=== PATIENT | female | born 1960 | race Caucasian/White ===

== ENCOUNTER 2016-09-14 13:39 | Emergency (ER) | payer MEDICARE, MEDICAID ==
[2016-09-14 14:18] LABS: BASO # 0.1 K/mm3 (0.0-0.2); BASO % 1.2 % (0.0-1.0); EOS # 0.1 K/mm3 (0.0-0.50); EOS % 1.1 % (0.0-3.0); LARGE UNSTAINED CELL # 0.2 K/mm3 (0.0-0.4); LYMPH # 3.5 K/mm3 (1.5-4.5); LYMPH % 39.8 % (24.0-44.0); MEAN CORPUSCULAR HEMOGLOBIN 29.5 pg (27.0-33.0); MEAN CORPUSCULAR HGB CONC 33.3 g/dl (32.0-36.5); MEAN CORPUSCULAR VOLUME 88.4 fl (80.0-96.0); MONO # 0.3 K/mm3 (0.0-0.8); MONO % 3.8 % (0.0-5.0); NEUTROPHILS # 4.6 K/mm3 (1.8-7.7); NEUTROPHILS % 52.1 % (36.0-66.0); PLATELET COUNT, AUTOMATED 228 k/mm3 (150-450); RED CELL DISTRIBUTION WIDTH 12.1 % (11.5-14.5); WHITE BLOOD COUNT 8.9 K/mm3 (4.0-10.0)
[2016-09-14 14:35] LABS: ANION GAP 9 MEQ/L (8-16); BLOOD UREA NITROGEN 8 MG/DL (7-18); CALCIUM LEVEL 8.7 MG/DL (8.5-10.1); CARBON DIOXIDE LEVEL 24 MEQ/L (21-32); CHLORIDE LEVEL 107 MEQ/L (98-107); CREATININE FOR GFR 0.77 MG/DL (0.55-1.02); FREE T4 1.22 NG/DL (0.76-1.46); GLOMERULAR FILTRATION RATE > 60.0 (>51); GLUCOSE, FASTING 96 MG/DL (70-105); POTASSIUM SERUM 3.6 MEQ/L (3.5-5.1); SODIUM LEVEL 140 MEQ/L (136-145)
--- NOTE | 2016-09-14 15:08 | REP ---
Chest, two views: Comparison: 11/08/2012 There is no evidence of acute infiltrate. No pleural effusion is seen. The heart is normal in size. The mediastinal silhouette is unremarkable. The visualized osseous structures are intact. IMPRESSION: No acute pulmonary disease. Signed by Pk Uribe MD 09/14/2016 07:40 P
--- NOTE | 2016-09-14 16:21 | EDDOCDS ---
Physician Documentation [facility] Name: Karen Christie Age: 56 yrs Sex: Female : 1960 Arrival Date: 09/14/2016 Time: 13:39 Bed 17 Private MD: Shahbaz Chris Disposition: 09/14 14:58 Critical Care: Critical care not applicable. pc Disposition: 09/14/16 15:41 Discharged to Home/Self Care. Impression: Palpitations, Cardiac murmur, unspecified - systolic, aortic valve, grade 2/6. - Condition is Stable. - Discharge Instructions: Heart Murmur, Palpitations. - Prescriptions for 24 Hr Holter Monitor . - as directed 1 unit by . route as directed Dx: palpitations CC: Dr. Monte; 1 unit. - Medication Reconciliation, Local Pharmacy Hours form. - Follow up: Enrrique Monte MD; When: Call to arrange an appointment; Reason: Further diagnostic work-up, Recheck today's complaints, To establish care. - Problem is new. - Symptoms are resolved. HPI: 14:54 This 56 yrs old Female presents to ER via Wheelchair with complaints of pc Palpitations. 14:54 The history is obtained from the patient. She states she can feel her race whenever she pc exerts herself, over the past few weeks, "maybe months". She denies any chest pain, nausea or diaphoresis with the episodes. She feels SOB at times with them. The patient has not experienced similar symptoms in the past. 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 Historical: - Allergies: No known drug Allergies; - Home Meds: 1. Advair Diskus 250-50 mcg/dose Inhl dsdv 1 puff 2 times per day has not refilled 2. aspirin 81 mg Oral TbEC 1 tab once daily 3. baclofen 10 mg Oral tab 1 tab twice a day 4. buspirone 5 mg Oral tab 1 tab 2 times per day 5. divalproex 500 mg oral Tb24 1 tab once daily 6. famotidine 20 mg Oral tab 1 tab once daily 7. fluticasone 50 mcg/actuation nasal spsn 1 spray once daily 8. lidocaine-prilocaine Cream PRN 9. loratadine 10 mg Oral TbDL 1 tab once daily 10. losartan 50 mg oral tab 1 tab once daily 11. magnesium oxide 400 mg Oral cap 400 mg daily 12. montelukast 10 mg oral tab 1 tab once daily 13. omeprazole 20 mg Oral cpDR 1 cap once daily 14. 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 - Social history: Smoking status: Patient uses tobacco products, heavy tobacco smoker. No barriers to communication noted, The patient speaks fluent Afghan, Speaks appropriately for age. - Family history: Not pertinent. - : The pt / caregiver states he / she is not on anticoagulants. Home medication list is obtained from the patient. - Hospitalizations: : No recent hospitalization is reported. - Exposure Risk Screening:: None identified. - Immunization history:: All immunizations up-to-date. - Social history:: the patient smokes cigarettes 1.5ppd the patient drinks alcohol. ROS: 14:54 All systems are negative except as listed. pc Exam: 14:58 General Appearance: no acute distress, alert. pc 14:58 EENT: normal eye inspection, ears, nose and throat normal, pharynx normal, mucous membranes moist 14:58 Neck: The exam reveals no acute abnormalities. ROM is normal and painless. No nuchal rigidity is noted.. 14:58 Respiratory: no respiratory distress, normal breath sounds. 14:58 CVS: regular pulse rate, regular rhythm, strong peripheral pulses, there is a murmur, systolic, grade 2 out of 6. 14:58 Abdomen: soft, non-tender, no organomegaly, normal bowel sounds. 14:58 Back: normal inspection. 14:58 Skin: skin color is normal, warm, dry. 14:58 Extremities: The extremities have a grossly normal appearance, are non-tender, without acute ROM abnormalities. 14:58 Neuro: oriented x 3, cranial nerves normal as tested, no motor deficits, no sensory deficits. 14:58 Psych: normal mood. Vital Signs: 13:41 BP 162 / 79 RA Sitting (auto/reg); Pulse 87; Resp 18; Temp 96.7; Pulse Ox 99% on R/A; jrd Weight 58.97 kg / 130.01 lbs (R); Height 5 ft. 3 in. (160.02 cm); Pain 0/10; 14:12 BP 133 / 75 (auto/); cjh 14:14 Pulse 62 MON; Pulse Ox 98% ; cjh 14:32 Pulse 52 MON; Pulse Ox 94% ; cjh 14:32 BP 130 / 67 (auto/); cjh 15:58 BP 130 / 73; Pulse 72; Resp 16; Temp 97.6(O); Pulse Ox 96% ; Pain 3/10; cmb 13:41 Body Mass Index 23.03 (58.97 kg, 160.02 cm) jrd MDM: 13:51 ECG WITH READING ER PHYS+CARDIAG ordered. EDMS 14:03 Milk Driver/Pulse Ox/q 30 min VS ordered. pc 14:03 IV Saline Lock ordered. pc 14:03 Rhythm Strip to chart ordered. pc 14:04 Chest, 2 View (pa\\E\\lat) Ordered. EDMS 14:04 Basic Metabolic Profile Ordered. EDMS 14:04 CBC with Diff Ordered. EDMS 14:04 Cardiac Injury Profile Ordered. EDMS 14:04 Troponin Ordered. EDMS 14:04 TSH with Free T4 Ordered. EDMS 14:37 CBC with Diff Reviewed. pc 14:37 Basic Metabolic Profile Reviewed. pc 14:37 Troponin Reviewed. pc 14:37 Cardiac Injury Profile Reviewed. pc 14:37 TSH with Free T4 Reviewed. pc 14:43 Basic Metabolic Profile Reviewed. pc 14:43 Cardiac Injury Profile Reviewed. pc 14:43 Troponin Reviewed. pc 14:43 TSH with Free T4 Reviewed. pc 14:53 Data reviewed: The patient's [facility] records were accessed, as they were informed. pc 14:58 Differential Diagnosis: palpitations, known heart murmur. Plan: labs, EKG. Data pc reviewed: old medical records, vital signs, nurses notes, EKG(s). Test interpretation: EKG. 14:58 Test interpretation: LAB - all labs as ordered have been reviewed, interpreted and pc considered in the overall management of the clinical presentation; X-RAY - interpreted by Radiologist and personally reviewed, 2 view chest, no acute disease. The patient has been re-examined and re-evaluated. The clinical presentation did not require any ED treatment or interventions. Disposition: The historical points, examination findings, and any diagnostic results supporting the provided diagnosis, were discussed with the patient or legal guardian. The need for outpatient follow up with the provider listed on their discharge instructions was discussed. They were encouraged to return to [facility], or the nearest ED, if symptoms worsen/persist, or for any other questions/concerns. 15:38 Physician consultation: Dr. Enrrique Monte MD regarding patient's condition, and advises the pc medications/treatment as provided. and agrees with the treatment provided and advises the discharge plans as outlined. EC:58 Rate is 78 beats/min. Rhythm is regular, Normal Sinus Rhythm. QRS [place] is Normal. [place] pc interval is normal. QRS interval is normal. QT interval is normal. No Q waves. T waves are Normal. No ST changes noted. Clinical impression: Normal Sinus Rhythm. Signatures: Dispatcher [employer] Eduin Martinez MD MD Candi Akins RN RN ck1 Rosa SiegelRN RN cj The chart was reviewed and I authenticate all verbal orders and agree with the evaluation and treatment provided.Corrections: (The following items were deleted from the chart) 14:58 14:54 The history from nurses notes was reviewed and I agree with what is documented. pcpc MTDD
--- NOTE | 2016-09-14 16:21 | EDDOCDS ---
Nurse's Notes [facility] Name: Karen Christie Age: 56 yrs Sex: Female : 1960 Arrival Date: 09/14/2016 Time: 13:39 Bed 17 Private MD: Shahbaz Chris Diagnosis: Palpitations;Cardiac murmur, unspecified-systolic, aortic valve, grade 2/6 Presentation: 09/14 13:43 Presenting complaint: Patient states: Palpitations and SOB for a week. Denies chest ck1 pain. Adult Sepsis Screening: The patient does not have new or worsening altered mentation. Patient's respiratory rate is less than 22. Systolic blood pressure is greater than 100. Patient has a qSOFA score of 0- Negative Sepsis Screen. Suicide/Homicide risk assessment- the patient denies having any suicidal and/or homicidal ideations and does not present with any other emotional, behavioral or mental health complaints. 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 Transition of care: patient was not received from another setting of care. 13:43 Acuity: DOC Level 3 ck1 13:43 Method Of Arrival: Wheelchair ck1 13:47 Red Flag criteria, patient assessed and taken directly to a bed. ck1 Triage Assessment: 13:46 General: Appears in no apparent distress, Behavior is appropriate for age, cooperative. ck1 Pain: Denies pain. HIV screening NA for this visit Offered previously. Neurological: Level of Consciousness is awake, alert, obeys commands, Oriented to person, place, time. Cardiovascular: Chest pain is denied. Respiratory: Respiratory effort is unlabored, Respiratory pattern is regular, symmetrical. Derm: Skin is pink, warm & dry. Historical: - Allergies: No known drug Allergies; - Home Meds: 1. Advair Diskus 250-50 mcg/dose Inhl dsdv 1 puff 2 times per day has not refilled 2. aspirin 81 mg Oral TbEC 1 tab once daily 3. baclofen 10 mg Oral tab 1 tab twice a day 4. buspirone 5 mg Oral tab 1 tab 2 times per day 5. divalproex 500 mg oral Tb24 1 tab once daily 6. famotidine 20 mg Oral tab 1 tab once daily 7. fluticasone 50 mcg/actuation nasal spsn 1 spray once daily 8. lidocaine-prilocaine Cream PRN 9. loratadine 10 mg Oral TbDL 1 tab once daily 10. losartan 50 mg oral tab 1 tab once daily 11. magnesium oxide 400 mg Oral cap 400 mg daily 12. montelukast 10 mg oral tab 1 tab once daily 13. omeprazole 20 mg Oral cpDR 1 cap once daily 14. 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 - Social history: Smoking status: Patient uses tobacco products, heavy tobacco smoker. No barriers to communication noted, The patient speaks fluent Welsh, Speaks appropriately for age. - Family history: Not pertinent. - : The pt / caregiver states he / she is not on anticoagulants. Home medication list is obtained from the patient. - Hospitalizations: : No recent hospitalization is reported. - Exposure Risk Screening:: None identified. - Immunization history:: All immunizations up-to-date. - Social history:: the patient smokes cigarettes 1.5ppd the patient drinks alcohol. Screenin:03 Screening information is obtained from the patient. Fall risk: No risks identified. cj Assistance ADL's: requires no assistance with activities of daily living. Abuse/DV Screen: The patient / caregiver reports he/she is: not in a situation that causes fear, pain or injury. Nutritional screening: No deficits noted. Advance Directives: There is no active DNR order. home support is adequate. Assessment: 14:00 General: Appears ill, Behavior is drowsy. Pain: Denies pain. Neurological: No deficits [facility] noted. Level of Consciousness is awake, alert, Oriented to person, place, time. Respiratory: Airway is patent Respiratory effort is even, unlabored, Respiratory pattern is regular, symmetrical. GI: Abdomen is non- distended Bowel sounds present X 4 quads. Abd is tender to palpation in right upper quadrant. Derm: Skin is pink, warm & dry. 15:50 General: denies pain or other needs, resting quietly, awaiting dispo. [facility] 16:03 General: Appears in no apparent distress, comfortable, Behavior is appropriate for age, cjh cooperative, states feels better and is ready to go home, talks about dogs at home and happy to get there. Reviewed discharge instructions, encouraged and answered questions. Escorted patient to registration for holter monitor, gait steady, requires no assist or support with ambulation. Pain: Denies pain. Vital Signs: 13:41 BP 162 / 79 RA Sitting (auto/reg); Pulse 87; Resp 18; Temp 96.7; Pulse Ox 99% on R/A; jrd Weight 58.97 kg (R); Height 5 ft. 3 in. (160.02 cm); Pain 0/10; 14:12 BP 133 / 75 (auto/); [facility] 14:14 Pulse 62 MON; Pulse Ox 98% ; [facility] 14:32 Pulse 52 MON; Pulse Ox 94% ; [facility] 14:32 BP 130 / 67 (auto/); [facility] 15:58 BP 130 / 73; Pulse 72; Resp 16; Temp 97.6(O); Pulse Ox 96% ; Pain 3/10; cmb 13:41 Body Mass Index 23.03 (58.97 kg, 160.02 cm) [facility] Vitals: 13:41 Log In Time: September 14, 2016 at 13:38. jrd 13:41 RN notified that patient meets Red Flag criteria. [facility] ED Course: 13:41 Patient visited by Jarod Ayala PCA. jrd 13:41 Shahbaz Chris is Private Physician. jrd 13:41 Patient moved to Waiting jrd 13:43 Patient visited by Jarod Ayala PCA. jrd 13:44 Triage Initiated ck1 13:47 Patient moved to 17 ck1 13:52 EKG done. (by ED staff). Reviewed by Eduin Coyle MD. cmb 13:56 Eduin Coyle MD is Attending Physician. pc 13:56 Patient visited by Heidi De La Torre. cmb 13:56 Pt greeted and oriented to ED. Patient advised of names of staff involved in care, cmb location of call monsalve, wait times and NPO status. Patient has correct armband on for positive identification. Placed in gown. Bed in low position. Call light in reach. Side rails up X2. cardiac monitor on. Pulse ox on. NIBP on. 14:07 TSH with Free T4 Sent. [facility] 14:07 Basic Metabolic Profile Sent. cj 14:07 CBC with Diff Sent. cj 14:08 Cardiac Injury Profile Sent. cj 14:08 Troponin Sent. cjh 14:37 Patient visited by Eduin Coyle MD. pc 14:41 Patient visited by Rosa Siegel RN. cj 15:16 Chest, 2 View (pa\E\lat) Returned. EDMS 15:39 Enrrique Monte MD is Referral Physician. pc 15:59 Patient visited by Heidi De La Torre. cmb 16:03 The patient / caregiver is instructed regarding the plan of care and ED course. cj 16:03 Discontinued lock intact, bleeding controlled, pressure dressing applied, No cjh redness/swelling at site. No procedures done that require assistance. Order Results: Lab Order: Basic Metabolic Profile; SPEC'M 09/14/16 13:59 Test: GLUCOSE, FASTING; Value: 96; Range: 70-105; Units: MG/DL; Status: F Test: BLOOD UREA NITROGEN; Value: 8; Range: 7-18; Units: MG/DL; Status: F Test: CREATININE FOR GFR; Value: 0.77; Range: 0.55-1.02; Units: MG/DL; Status: F Test: GLOMERULAR FILTRATION RATE; Value: > 60.0; Range: >51; Status: F Test: SODIUM LEVEL; Value: 140; Range: 136-145; Units: MEQ/L; Status: F Test: POTASSIUM SERUM; Value: 3.6; Range: 3.5-5.1; Units: MEQ/L; Status: F Test: CHLORIDE LEVEL; Value: 107; Range: 98-107; Units: MEQ/L; Status: F Test: CARBON DIOXIDE LEVEL; Value: 24; Range: 21-32; Units: MEQ/L; Status: F Test: ANION GAP; Value: 9; Range: 8-16; Units: MEQ/L; Status: F Test: CALCIUM LEVEL; Value: 8.7; Range: 8.5-10.1; Units: MG/DL; Status: F Test Note: ; Units are mL/min/1.73 m2 Chronic Kidney Disease Staging per NKF: Stage I & II GFR >=60 Normal to Mildly Decreased Stage III GFR 30-59 Moderately Decreased Stage IV GFR 15-29 Severely Decreased Stage V GFR <15 Very Little GFR Left ESRD GFR <15 on METAL BONDING CRIB ATTENDANT Lab Order: CBC with Diff; BEHT'Yessenia 09/14/16 13:59 Test: WHITE BLOOD COUNT; Value: 8.9; Range: 4.0-10.0; Units: K/mm3; Status: F Test: RED BLOOD COUNT; Value: 5.05; Range: 4.00-5.40; Units: M/mm3; Status: F Test: HEMOGLOBIN; Value: 14.9; Range: 12.0-16.0; Units: g/dl; Status: F Test: HEMATOCRIT; Value: 44.7; Range: 36.0-47.0; Units: %; Status: F Test: MEAN CORPUSCULAR VOLUME; Value: 88.4; Range: 80.0-96.0; Units: fl; Status: F Test: MEAN CORPUSCULAR HEMOGLOBIN; Value: 29.5; Range: 27.0-33.0; Units: pg; Status: F Test: MEAN CORPUSCULAR HGB CONC; Value: 33.3; Range: 32.0-36.5; Units: g/dl; Status: F Test: RED CELL DISTRIBUTION WIDTH; Value: 12.1; Range: 11.5-14.5; Units: %; Status: F Test: PLATELET COUNT, AUTOMATED; Value: 228; Range: 150-450; Units: k/mm3; Status: F Test: NEUTROPHILS %; Value: 52.1; Range: 36.0-66.0; Units: %; Status: F Test: LYMPH %; Value: 39.8; Range: 24.0-44.0; Units: %; Status: F Test: MONO %; Value: 3.8; Range: 0.0-5.0; Units: %; Status: F Test: EOS %; Value: 1.1; Range: 0.0-3.0; Units: %; Status: F Test: BASO %; Value: 1.2; Range: 0.0-1.0; Abnormal: Above high normal; Units: %; Status: F Test: LARGE UNSTAINED CELL %; Value: 2.0; Range: 0.0-4.0; Units: %; Status: F Test: NEUTROPHILS #; Value: 4.6; Range: 1.8-7.7; Units: K/mm3; Status: F Test: LYMPH #; Value: 3.5; Range: 1.5-4.5; Units: K/mm3; Status: F Test: MONO #; Value: 0.3; Range: 0.0-0.8; Units: K/mm3; Status: F Test: EOS #; Value: 0.1; Range: 0.0-0.50; Units: K/mm3; Status: F Test: BASO #; Value: 0.1; Range: 0.0-0.2; Units: K/mm3; Status: F Test: LARGE UNSTAINED CELL #; Value: 0.2; Range: 0.0-0.4; Units: K/mm3; Status: F Lab Order: Cardiac Injury Profile; [facility]09/14[facility] 13:59 Test: CPK CREATINE PHOSPHOKINASE; Value: 124; Range: 26-192; Units: U/L; Status: F Test: CK-MB VALUE MASS; Value: 1.0; Range: 0.0-3.6; Units: NG/ML; Status: F Test: MB/CK RELATIVE INDEX; Value: 0.80; Range: < OR =4; Status: F Test Note: ; DIAGNOSIS CRITERIA MMB ng/ml Relative Index (RI) NON-AMI < or = 5 N/A BURGER ZONE > 5 < or = 4 AMI > 5 > 4 Lab Order: Troponin; [facility] 09/14/16 13:59 Test: TROPONIN I; Value: < 0.02; Range: < 0.10; Units: NG/ML; Status: F Test Note: ; Troponin I Reference Interval for Showpad LOCI: 99th Percentile= 0.00-0.045 ng/ml Risk Stratification: <= 0.10 ng/ml Decreased Risk for Adverse Clinical Events. 0.10-1.50 ng/ml Increased Risk for Adverse Clinical Events. Evaluation of additional criterion and/or repeat testing in 2-6 hours is suggested to rule out myocardial damage. >= 1.50 ng/ml Indicative of Myocardial Injury. Lab Order: TSH with Free T4; [facility] 13:59 Test: THYROID STIMULATING HORMONE; Value: 1.230; Range: 0.358-3.740; Units: uIU/ML; Status: F Test: FREE T4; Value: 1.22; Range: 0.76-1.46; Units: NG/DL; Status: F Radiology Order: Chest, 2 View (pa\E\lat) Test: Chest, 2 View (pa\E\lat) REASON FOR EXAMINATION: palpitations; Chest, two views:; ; Comparison: 11/08/2012; ; There is no evidence of acute infiltrate.; No pleural effusion is seen.; The heart is normal in size.; The mediastinal silhouette is unremarkable.; The visualized osseous structures are intact.; ; IMPRESSION:; No acute pulmonary disease.; ; ; ; ; Unreviewed; Outcome: 15:41 Discharge ordered by Provider. 16:03 Discharge Assessment: Patient awake, alert and oriented x 3. No cognitive and/or [facility] functional deficits noted. Patient verbalized understanding of disposition instructions. patient administered narcotics - no. The following High Risk Discharge criteria are identified: None. Discharged to home ambulatory. Condition: good Condition: stable Condition: improved. Discharge instructions given to patient, Instructed on discharge instructions, follow up and referral plans. Demonstrated understanding of instructions, Pt was receptive of discharge instructions/ teaching. Prescriptions given X 1. No special radiology studies were completed. Property :Personal belongings accompany Pt. 16:20 Patient left the ED. [facility] Signatures: Dispatcher [employer] Eduin Martinez MD MD pc Kim-Ashcraft, ConnieRN RN ck1 Rosa Siegel RN RN [facility] Heidi De La Torre Joseph, PCA PCA jrd Corrections: (The following items were deleted from the chart) 14:58 14:54 The history from nurses notes was reviewed and I agree with what is documented. pcpc MTDD
--- NOTE | 2016-09-16 08:56 | ECGEPIP ---
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
--- NOTE | 2016-09-16 17:21 | EDDOCDS ---
Physician Documentation [facility] Name: Karen Christie Age: 56 yrs Sex: Female : 1960 Arrival Date: 09/14/2016 Time: 13:39 Bed 17 Private MD: Shahbaz Chris Disposition: 09/14 14:58 Critical Care: Critical care not applicable. pc Disposition: 09/14/16 15:41 Discharged to Home/Self Care. Impression: Palpitations, Cardiac murmur, unspecified - systolic, aortic valve, grade 2/6. - Condition is Stable. - Discharge Instructions: Heart Murmur, Palpitations. - Prescriptions for 24 Hr Holter Monitor . - as directed 1 unit by . route as directed Dx: palpitations CC: Dr. Monte; 1 unit. - Medication Reconciliation, Local Pharmacy Hours form. - Follow up: Enrrique Monte MD; When: Call to arrange an appointment; Reason: Further diagnostic work-up, Recheck today's complaints, To establish care. - Problem is new. - Symptoms are resolved. HPI: 14:54 This 56 yrs old Female presents to ER via Wheelchair with complaints of pc Palpitations. 14:54 The history is obtained from the patient. She states she can feel her race whenever she pc exerts herself, over the past few weeks, "maybe months". She denies any chest pain, nausea or diaphoresis with the episodes. She feels SOB at times with them. The patient has not experienced similar symptoms in the past. The patient has been recently seen by a paint stockman. Historical: - Allergies: No known drug Allergies; - Home Meds: 1. Advair Diskus 250-50 mcg/dose Inhl dsdv 1 puff 2 times per day has not refilled 2. aspirin 81 mg Oral TbEC 1 tab once daily 3. baclofen 10 mg Oral tab 1 tab twice a day 4. buspirone 5 mg Oral tab 1 tab 2 times per day 5. divalproex 500 mg oral Tb24 1 tab once daily 6. famotidine 20 mg Oral tab 1 tab once daily 7. fluticasone 50 mcg/actuation nasal spsn 1 spray once daily 8. lidocaine-prilocaine Cream PRN 9. loratadine 10 mg Oral TbDL 1 tab once daily 10. losartan 50 mg oral tab 1 tab once daily 11. magnesium oxide 400 mg Oral cap 400 mg daily 12. montelukast 10 mg oral tab 1 tab once daily 13. omeprazole 20 mg Oral cpDR 1 cap once daily 14. 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 - Social history: Smoking status: Patient uses tobacco products, heavy tobacco smoker. No barriers to communication noted, The patient speaks fluent Czech, Speaks appropriately for age. - Family history: Not pertinent. - : The pt / caregiver states he / she is not on anticoagulants. Home medication list is obtained from the patient. - Hospitalizations: : No recent hospitalization is reported. - Exposure Risk Screening:: None identified. - Immunization history:: All immunizations up-to-date. - Social history:: the patient smokes cigarettes 1.5ppd the patient drinks alcohol. ROS: 14:54 All systems are negative except as listed. pc Exam: 14:58 General Appearance: no acute distress, alert. pc 14:58 EENT: normal eye inspection, ears, nose and throat normal, pharynx normal, mucous membranes moist 14:58 Neck: The exam reveals no acute abnormalities. ROM is normal and painless. No nuchal rigidity is noted.. 14:58 Respiratory: no respiratory distress, normal breath sounds. 14:58 CVS: regular pulse rate, regular rhythm, strong peripheral pulses, there is a murmur, systolic, grade 2 out of 6. 14:58 Abdomen: soft, non-tender, no organomegaly, normal bowel sounds. 14:58 Back: normal inspection. 14:58 Skin: skin color is normal, warm, dry. 14:58 Extremities: The extremities have a grossly normal appearance, are non-tender, without acute ROM abnormalities. 14:58 Neuro: oriented x 3, cranial nerves normal as tested, no motor deficits, no sensory deficits. 14:58 Psych: normal mood. Vital Signs: 13:41 BP 162 / 79 RA Sitting (auto/reg); Pulse 87; Resp 18; Temp 96.7; Pulse Ox 99% on R/A; jrd Weight 58.97 kg / 130.01 lbs (R); Height 5 ft. 3 in. (160.02 cm); Pain 0/10; 14:12 BP 133 / 75 (auto/); cjh 14:14 Pulse 62 MON; Pulse Ox 98% ; cjh 14:32 Pulse 52 MON; Pulse Ox 94% ; cjh 14:32 BP 130 / 67 (auto/); cjh 15:58 BP 130 / 73; Pulse 72; Resp 16; Temp 97.6(O); Pulse Ox 96% ; Pain 3/10; cmb 13:41 Body Mass Index 23.03 (58.97 kg, 160.02 cm) jrd MDM: 13:51 ECG WITH READING ER PHYS+CARDIAG ordered. EDMS 14:03 Resource Economist/Pulse Ox/q 30 min VS ordered. pc 14:03 IV Saline Lock ordered. pc 14:03 Rhythm Strip to chart ordered. pc 14:04 Chest, 2 View (pa\\E\\lat) Ordered. EDMS 14:04 Basic Metabolic Profile Ordered. EDMS 14:04 CBC with Diff Ordered. EDMS 14:04 Cardiac Injury Profile Ordered. EDMS 14:04 Troponin Ordered. EDMS 14:04 TSH with Free T4 Ordered. EDMS 14:37 CBC with Diff Reviewed. pc 14:37 Basic Metabolic Profile Reviewed. pc 14:37 Troponin Reviewed. pc 14:37 Cardiac Injury Profile Reviewed. pc 14:37 TSH with Free T4 Reviewed. pc 14:43 Basic Metabolic Profile Reviewed. pc 14:43 Cardiac Injury Profile Reviewed. pc 14:43 Troponin Reviewed. pc 14:43 TSH with Free T4 Reviewed. pc 14:53 Data reviewed: The patient's [facility] records were accessed, as they were informed. pc 14:58 Differential Diagnosis: palpitations, known heart murmur. Plan: labs, EKG. Data pc reviewed: old medical records, vital signs, nurses notes, EKG(s). Test interpretation: EKG. 14:58 Test interpretation: LAB - all labs as ordered have been reviewed, interpreted and pc considered in the overall management of the clinical presentation; X-RAY - interpreted by Radiologist and personally reviewed, 2 view chest, no acute disease. The patient has been re-examined and re-evaluated. The clinical presentation did not require any ED treatment or interventions. Disposition: The historical points, examination findings, and any diagnostic results supporting the provided diagnosis, were discussed with the patient or legal guardian. The need for outpatient follow up with the provider listed on their discharge instructions was discussed. They were encouraged to return to [facility], or the nearest ED, if symptoms worsen/persist, or for any other questions/concerns. 15:38 Physician consultation: Dr. Enrrique Monte MD regarding patient's condition, and advises the medications/treatment as provided. and agrees with the treatment provided and advises the discharge plans as outlined. 09/15 11:38 ECG/EKG was scanned into [employer] and attached to record. EC/01 14:58 Rate is 78 beats/min. Rhythm is regular, Normal Sinus Rhythm. QRS [place] is Normal. [place] pc interval is normal. QRS interval is normal. QT interval is normal. No Q waves. T waves are Normal. No ST changes noted. Clinical impression: Normal Sinus Rhythm. Signatures: Dispatcher Med[employer] or Fall EDEduin Ricketts MD MD Deb Gardiner, [facility] Candi AkinsRN RN ck1 Rosa SiegelRN RN [facility] The chart was reviewed and I authenticate all verbal orders and agree with the evaluation and treatment provided.Corrections: (The following items were deleted from the chart) 14:58 14:54 The history from nurses notes was reviewed and I agree with what is documented. pcpc Attachments: 09/15 11:38 ECG/EKG Chart Complete MTDD
--- NOTE | 2016-09-16 17:21 | EDDOCDS ---
Nurse's Notes [facility] Name: Lucero Cedeno Age: 56 yrs Sex: Female : 1960 Arrival Date: 09/14/2016 Time: 13:39 Bed 17 Private MD: Shahbaz Chris Diagnosis: Palpitations;Cardiac murmur, unspecified-systolic, aortic valve, grade 2/6 Presentation: 09/14 13:43 Presenting complaint: Patient states: Palpitations and SOB for a week. Denies chest ck1 pain. Adult Sepsis Screening: The patient does not have new or worsening altered mentation. Patient's respiratory rate is less than 22. Systolic blood pressure is greater than 100. Patient has a qSOFA score of 0- Negative Sepsis Screen. Suicide/Homicide risk assessment- the patient denies having any suicidal and/or homicidal ideations and does not present with any other emotional, behavioral or mental health complaints. Status: Patient is not a business services manager or dependent. Transition of care: patient was not received from another setting of care. 13:43 Acuity: DOC Level 3 ck1 13:43 Method Of Arrival: Wheelchair ck1 13:47 Red Flag criteria, patient assessed and taken directly to a bed. ck1 Triage Assessment: 13:46 General: Appears in no apparent distress, Behavior is appropriate for age, cooperative. ck1 Pain: Denies pain. HIV screening NA for this visit Offered previously. Neurological: Level of Consciousness is awake, alert, obeys commands, Oriented to person, place, time. Cardiovascular: Chest pain is denied. Respiratory: Respiratory effort is unlabored, Respiratory pattern is regular, symmetrical. Derm: Skin is pink, warm & dry. Historical: - Allergies: No known drug Allergies; - Home Meds: 1. Advair Diskus 250-50 mcg/dose Inhl dsdv 1 puff 2 times per day has not refilled 2. aspirin 81 mg Oral TbEC 1 tab once daily 3. baclofen 10 mg Oral tab 1 tab twice a day 4. buspirone 5 mg Oral tab 1 tab 2 times per day 5. divalproex 500 mg oral Tb24 1 tab once daily 6. famotidine 20 mg Oral tab 1 tab once daily 7. fluticasone 50 mcg/actuation nasal spsn 1 spray once daily 8. lidocaine-prilocaine Cream PRN 9. loratadine 10 mg Oral TbDL 1 tab once daily 10. losartan 50 mg oral tab 1 tab once daily 11. magnesium oxide 400 mg Oral cap 400 mg daily 12. montelukast 10 mg oral tab 1 tab once daily 13. omeprazole 20 mg Oral cpDR 1 cap once daily 14. 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 - Social history: Smoking status: Patient uses tobacco products, heavy tobacco smoker. No barriers to communication noted, The patient speaks fluent Welsh, Speaks appropriately for age. - Family history: Not pertinent. - : The pt / caregiver states he / she is not on anticoagulants. Home medication list is obtained from the patient. - Hospitalizations: : No recent hospitalization is reported. - Exposure Risk Screening:: None identified. - Immunization history:: All immunizations up-to-date. - Social history:: the patient smokes cigarettes 1.5ppd the patient drinks alcohol. Screenin:03 Screening information is obtained from the patient. Fall risk: No risks identified. cj Assistance ADL's: requires no assistance with activities of daily living. Abuse/DV Screen: The patient / caregiver reports he/she is: not in a situation that causes fear, pain or injury. Nutritional screening: No deficits noted. Advance Directives: There is no active DNR order. home support is adequate. Assessment: 14:00 General: Appears ill, Behavior is drowsy. Pain: Denies pain. Neurological: No deficits [facility] noted. Level of Consciousness is awake, alert, Oriented to person, place, time. Respiratory: Airway is patent Respiratory effort is even, unlabored, Respiratory pattern is regular, symmetrical. GI: Abdomen is non- distended Bowel sounds present X 4 quads. Abd is tender to palpation in right upper quadrant. Derm: Skin is pink, warm & dry. 15:50 General: denies pain or other needs, resting quietly, awaiting dispo. [facility] 16:03 General: Appears in no apparent distress, comfortable, Behavior is appropriate for age, cjh cooperative, states feels better and is ready to go home, talks about dogs at home and happy to get there. Reviewed discharge instructions, encouraged and answered questions. Escorted patient to registration for holter monitor, gait steady, requires no assist or support with ambulation. Pain: Denies pain. Vital Signs: 13:41 BP 162 / 79 RA Sitting (auto/reg); Pulse 87; Resp 18; Temp 96.7; Pulse Ox 99% on R/A; jrd Weight 58.97 kg (R); Height 5 ft. 3 in. (160.02 cm); Pain 0/10; 14:12 BP 133 / 75 (auto/); [facility] 14:14 Pulse 62 MON; Pulse Ox 98% ; [facility] 14:32 Pulse 52 MON; Pulse Ox 94% ; [facility] 14:32 BP 130 / 67 (auto/); [facility] 15:58 BP 130 / 73; Pulse 72; Resp 16; Temp 97.6(O); Pulse Ox 96% ; Pain 3/10; cmb 13:41 Body Mass Index 23.03 (58.97 kg, 160.02 cm) [facility] Vitals: 13:41 Log In Time: September 14, 2016 at 13:38. jrd 13:41 RN notified that patient meets Red Flag criteria. [facility] ED Course: 13:41 Patient visited by Jarod Ayala PCA. jrd 13:41 Shahbaz Chris is Private Physician. jrd 13:41 Patient moved to Waiting jrd 13:43 Patient visited by Jarod Ayala PCA. jrd 13:44 Triage Initiated ck1 13:47 Patient moved to 17 ck1 13:52 EKG done. (by ED staff). Reviewed by Eduin Coyle MD. cmb 13:56 Eduin Coyle MD is Attending Physician. pc 13:56 Patient visited by Heidi De La Torre. cmb 13:56 Pt greeted and oriented to ED. Patient advised of names of staff involved in care, cmb location of call monsalve, wait times and NPO status. Patient has correct armband on for positive identification. Placed in gown. Bed in low position. Call light in reach. Side rails up X2. satellite project site monitor on. Pulse ox on. NIBP on. 14:07 TSH with Free T4 Sent. [facility] 14:07 Basic Metabolic Profile Sent. cj 14:07 CBC with Diff Sent. cj 14:08 Cardiac Injury Profile Sent. cj 14:08 Troponin Sent. cjh 14:37 Patient visited by Eduin Coyle MD. pc 14:41 Patient visited by Rosa Siegel RN. cj 15:16 Chest, 2 View (pa\E\lat) Returned. EDMS 15:39 Enrrique Monte MD is Referral Physician. pc 15:59 Patient visited by Heidi De La Torre. cmb 16:03 The patient / caregiver is instructed regarding the plan of care and ED course. cj 16:03 Discontinued lock intact, bleeding controlled, pressure dressing applied, No cj redness/swelling at site. No procedures done that require assistance. 09/15 11:38 ECG/EKG was scanned into [employer] and attached to record. 09/16 09:17 EKG-ADULT Returned. EDMS Order Results: Lab Order: Basic Metabolic Profile; SPEC'M 09/14/16 13:59 Test: GLUCOSE, FASTING; Value: 96; Range: 70-105; Units: MG/DL; Status: F Test: BLOOD UREA NITROGEN; Value: 8; Range: 7-18; Units: MG/DL; Status: F Test: CREATININE FOR GFR; Value: 0.77; Range: 0.55-1.02; Units: MG/DL; Status: F Test: GLOMERULAR FILTRATION RATE; Value: > 60.0; Range: >51; Status: F Test: SODIUM LEVEL; Value: 140; Range: 136-145; Units: MEQ/L; Status: F Test: POTASSIUM SERUM; Value: 3.6; Range: 3.5-5.1; Units: MEQ/L; Status: F Test: CHLORIDE LEVEL; Value: 107; Range: 98-107; Units: MEQ/L; Status: F Test: CARBON DIOXIDE LEVEL; Value: 24; Range: 21-32; Units: MEQ/L; Status: F Test: ANION GAP; Value: 9; Range: 8-16; Units: MEQ/L; Status: F Test: CALCIUM LEVEL; Value: 8.7; Range: 8.5-10.1; Units: MG/DL; Status: F Test Note: ; Units are mL/min/1.73 m2 Chronic Kidney Disease Staging per NKF: Stage I & II GFR >=60 Normal to Mildly Decreased Stage III GFR 30-59 Moderately Decreased Stage IV GFR 15-29 Severely Decreased Stage V GFR <15 Very Little GFR Left ESRD GFR <15 on TRAFFIC LAW ATTORNEY Lab Order: CBC with Diff; BETH'Yessenia 09/14/16 13:59 Test: WHITE BLOOD COUNT; Value: 8.9; Range: 4.0-10.0; Units: K/mm3; Status: F Test: RED BLOOD COUNT; Value: 5.05; Range: 4.00-5.40; Units: M/mm3; Status: F Test: HEMOGLOBIN; Value: 14.9; Range: 12.0-16.0; Units: g/dl; Status: F Test: HEMATOCRIT; Value: 44.7; Range: 36.0-47.0; Units: %; Status: F Test: MEAN CORPUSCULAR VOLUME; Value: 88.4; Range: 80.0-96.0; Units: fl; Status: F Test: MEAN CORPUSCULAR HEMOGLOBIN; Value: 29.5; Range: 27.0-33.0; Units: pg; Status: F Test: MEAN CORPUSCULAR HGB CONC; Value: 33.3; Range: 32.0-36.5; Units: g/dl; Status: F Test: RED CELL DISTRIBUTION WIDTH; Value: 12.1; Range: 11.5-14.5; Units: %; Status: F Test: PLATELET COUNT, AUTOMATED; Value: 228; Range: 150-450; Units: k/mm3; Status: F Test: NEUTROPHILS %; Value: 52.1; Range: 36.0-66.0; Units: %; Status: F Test: LYMPH %; Value: 39.8; Range: 24.0-44.0; Units: %; Status: F Test: MONO %; Value: 3.8; Range: 0.0-5.0; Units: %; Status: F Test: EOS %; Value: 1.1; Range: 0.0-3.0; Units: %; Status: F Test: BASO %; Value: 1.2; Range: 0.0-1.0; Abnormal: Above high normal; Units: %; Status: F Test: LARGE UNSTAINED CELL %; Value: 2.0; Range: 0.0-4.0; Units: %; Status: F Test: NEUTROPHILS #; Value: 4.6; Range: 1.8-7.7; Units: K/mm3; Status: F Test: LYMPH #; Value: 3.5; Range: 1.5-4.5; Units: K/mm3; Status: F Test: MONO #; Value: 0.3; Range: 0.0-0.8; Units: K/mm3; Status: F Test: EOS #; Value: 0.1; Range: 0.0-0.50; Units: K/mm3; Status: F Test: BASO #; Value: 0.1; Range: 0.0-0.2; Units: K/mm3; Status: F Test: LARGE UNSTAINED CELL #; Value: 0.2; Range: 0.0-0.4; Units: K/mm3; Status: F Lab Order: Cardiac Injury Profile; [facility] 09/14/16 13:59 Test: CPK CREATINE PHOSPHOKINASE; Value: 124; Range: 26-192; Units: U/L; Status: F Test: CK-MB VALUE MASS; Value: 1.0; Range: 0.0-3.6; Units: NG/ML; Status: F Test: MB/CK RELATIVE INDEX; Value: 0.80; Range: < OR =4; Status: F Test Note: ; DIAGNOSIS CRITERIA MMB ng/ml Relative Index (RI) NON-AMI < or = 5 N/A URIBE ZONE > 5 < or = 4 AMI > 5 > 4 Lab Order: Troponin; [facility]' 09/14/16 13:59 Test: TROPONIN I; Value: < 0.02; Range: < 0.10; Units: NG/ML; Status: F Test Note: ; Troponin I Reference Interval for [place] LOCI: 99th Percentile= 0.00-0.045 ng/ml Risk Stratification: <= 0.10 ng/ml Decreased Risk for Adverse Clinical Events. 0.10-1.50 ng/ml Increased Risk for Adverse Clinical Events. Evaluation of additional criterion and/or repeat testing in 2-6 hours is suggested to rule out myocardial damage. >= 1.50 ng/ml Indicative of Myocardial Injury. Lab Order: TSH with Free T4; SPEC'M 09/14/16 13:59 Test: THYROID STIMULATING HORMONE; Value: 1.230; Range: 0.358-3.740; Units: uIU/ML; Status: F Test: FREE T4; Value: 1.22; Range: 0.76-1.46; Units: NG/DL; Status: F Radiology Order: EKG-ADULT Test: EKG-ADULT REASON FOR EXAMINATION: palpitations; Stationary ECG Study; [facility] - ED; ; Test Date: 2016-09-14; Pat Name: LUCERO CEDENO Department:; Room: -; Gender: F Roving Tester Laboratory: [facility]; : 1960 Requested By: Eduin Beltrán; Order Number: [id number] Reading MD: Marya Hendrickson; Measurements; Intervals [place]; Rate: 78 P: 68; AR: 160 QRS: 11; QRSD: 90 T: 16; QT: 358; QTc: 408; Interpretive Statements; SINUS RHYTHM; NSTTW ABNORMALITY; INCREASED RATE 11/09/12; Electronically Signed On 09-16-2016 8:56:08 EST by Marya Hendrickson; Radiology Order: Chest, 2 View (pa\E\lat) Test: Chest, 2 View (pa\E\lat) REASON FOR EXAMINATION: palpitations; Chest, two views:; ; Comparison: 11/08/2012; ; There is no evidence of acute infiltrate.; ; No pleural effusion is seen.; ; The heart is normal in size.; ; The mediastinal silhouette is unremarkable.; ; The visualized osseous structures are intact.; ; IMPRESSION:; ; No acute pulmonary disease.; ; ; ; ; Signed by; Pk Uribe MD 09/14/2016 07:40 P; Outcome: 09/14 15:41 Discharge ordered by Provider. pc 16:03 Discharge Assessment: Patient awake, alert and oriented x 3. No cognitive and/or cjh functional deficits noted. Patient verbalized understanding of disposition instructions. patient administered narcotics - no. The following High Risk Discharge criteria are identified: None. Discharged to home ambulatory. Condition: good Condition: stable Condition: improved. Discharge instructions given to patient, Instructed on discharge instructions, follow up and referral plans. Demonstrated understanding of instructions, Pt was receptive of discharge instructions/ teaching. Prescriptions given X 1. No special radiology studies were completed. Property :Personal belongings accompany Pt. 16:20 Patient left the ED. [facility] Signatures: Dispatcher [employer] EDEduin Ricketts MD MD pc Barnhardt, Gloria, Reg Reg gb Candi AkinsRN RN ck1 Rosa SiegelRN RN [facility] Heidi De La Torre Joseph, PCA PCA jrd Corrections: (The following items were deleted from the chart) 14:58 14:54 The history from nurses notes was reviewed and I agree with what is documented. pcpc Chart Complete MTDD
--- NOTE | 2016-09-16 17:21 | EDDOCDS ---
Physician Documentation [facility] Name: Karen Christie Age: 56 yrs Sex: Female : 1960 Arrival Date: 09/14/2016 Time: 13:39 Bed 17 Private MD: Shahbaz Chris Disposition: 09/14 14:58 Critical Care: Critical care not applicable. pc Disposition: 09/14/16 15:41 Discharged to Home/Self Care. Impression: Palpitations, Cardiac murmur, unspecified - systolic, aortic valve, grade 2/6. - Condition is Stable. - Discharge Instructions: Heart Murmur, Palpitations. - Prescriptions for 24 Hr Holter Monitor . - as directed 1 unit by . route as directed Dx: palpitations CC: Dr. Monte; 1 unit. - Medication Reconciliation, Local Pharmacy Hours form. - Follow up: Enrrique Monte MD; When: Call to arrange an appointment; Reason: Further diagnostic work-up, Recheck today's complaints, To establish care. - Problem is new. - Symptoms are resolved. HPI: 14:54 This 56 yrs old Female presents to ER via Wheelchair with complaints of pc Palpitations. 14:54 The history is obtained from the patient. She states she can feel her race whenever she pc exerts herself, over the past few weeks, "maybe months". She denies any chest pain, nausea or diaphoresis with the episodes. She feels SOB at times with them. The patient has not experienced similar symptoms in the past. The patient has been recently seen by a painting manager. Historical: - Allergies: No known drug Allergies; - Home Meds: 1. Advair Diskus 250-50 mcg/dose Inhl dsdv 1 puff 2 times per day has not refilled 2. aspirin 81 mg Oral TbEC 1 tab once daily 3. baclofen 10 mg Oral tab 1 tab twice a day 4. buspirone 5 mg Oral tab 1 tab 2 times per day 5. divalproex 500 mg oral Tb24 1 tab once daily 6. famotidine 20 mg Oral tab 1 tab once daily 7. fluticasone 50 mcg/actuation nasal spsn 1 spray once daily 8. lidocaine-prilocaine Cream PRN 9. loratadine 10 mg Oral TbDL 1 tab once daily 10. losartan 50 mg oral tab 1 tab once daily 11. magnesium oxide 400 mg Oral cap 400 mg daily 12. montelukast 10 mg oral tab 1 tab once daily 13. omeprazole 20 mg Oral cpDR 1 cap once daily 14. 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 - Social history: Smoking status: Patient uses tobacco products, heavy tobacco smoker. No barriers to communication noted, The patient speaks fluent Bahraini, Speaks appropriately for age. - Family history: Not pertinent. - : The pt / caregiver states he / she is not on anticoagulants. Home medication list is obtained from the patient. - Hospitalizations: : No recent hospitalization is reported. - Exposure Risk Screening:: None identified. - Immunization history:: All immunizations up-to-date. - Social history:: the patient smokes cigarettes 1.5ppd the patient drinks alcohol. ROS: 14:54 All systems are negative except as listed. pc Exam: 14:58 General Appearance: no acute distress, alert. pc 14:58 EENT: normal eye inspection, ears, nose and throat normal, pharynx normal, mucous membranes moist 14:58 Neck: The exam reveals no acute abnormalities. ROM is normal and painless. No nuchal rigidity is noted.. 14:58 Respiratory: no respiratory distress, normal breath sounds. 14:58 CVS: regular pulse rate, regular rhythm, strong peripheral pulses, there is a murmur, systolic, grade 2 out of 6. 14:58 Abdomen: soft, non-tender, no organomegaly, normal bowel sounds. 14:58 Back: normal inspection. 14:58 Skin: skin color is normal, warm, dry. 14:58 Extremities: The extremities have a grossly normal appearance, are non-tender, without acute ROM abnormalities. 14:58 Neuro: oriented x 3, cranial nerves normal as tested, no motor deficits, no sensory deficits. 14:58 Psych: normal mood. Vital Signs: 13:41 BP 162 / 79 RA Sitting (auto/reg); Pulse 87; Resp 18; Temp 96.7; Pulse Ox 99% on R/A; jrd Weight 58.97 kg / 130.01 lbs (R); Height 5 ft. 3 in. (160.02 cm); Pain 0/10; 14:12 BP 133 / 75 (auto/); cjh 14:14 Pulse 62 MON; Pulse Ox 98% ; cjh 14:32 Pulse 52 MON; Pulse Ox 94% ; cjh 14:32 BP 130 / 67 (auto/); cjh 15:58 BP 130 / 73; Pulse 72; Resp 16; Temp 97.6(O); Pulse Ox 96% ; Pain 3/10; cmb 13:41 Body Mass Index 23.03 (58.97 kg, 160.02 cm) jrd MDM: 13:51 ECG WITH READING ER PHYS+CARDIAG ordered. EDMS 14:03 Assistant Women'S Soccer Coach/Pulse Ox/q 30 min VS ordered. pc 14:03 IV Saline Lock ordered. pc 14:03 Rhythm Strip to chart ordered. pc 14:04 Chest, 2 View (pa\\E\\lat) Ordered. EDMS 14:04 Basic Metabolic Profile Ordered. EDMS 14:04 CBC with Diff Ordered. EDMS 14:04 Cardiac Injury Profile Ordered. EDMS 14:04 Troponin Ordered. EDMS 14:04 TSH with Free T4 Ordered. EDMS 14:37 CBC with Diff Reviewed. pc 14:37 Basic Metabolic Profile Reviewed. pc 14:37 Troponin Reviewed. pc 14:37 Cardiac Injury Profile Reviewed. pc 14:37 TSH with Free T4 Reviewed. pc 14:43 Basic Metabolic Profile Reviewed. pc 14:43 Cardiac Injury Profile Reviewed. pc 14:43 Troponin Reviewed. pc 14:43 TSH with Free T4 Reviewed. pc 14:53 Data reviewed: The patient's [facility] records were accessed, as they were informed. pc 14:58 Differential Diagnosis: palpitations, known heart murmur. Plan: labs, EKG. Data pc reviewed: old medical records, vital signs, nurses notes, EKG(s). Test interpretation: EKG. 14:58 Test interpretation: LAB - all labs as ordered have been reviewed, interpreted and pc considered in the overall management of the clinical presentation; X-RAY - interpreted by Radiologist and personally reviewed, 2 view chest, no acute disease. The patient has been re-examined and re-evaluated. The clinical presentation did not require any ED treatment or interventions. Disposition: The historical points, examination findings, and any diagnostic results supporting the provided diagnosis, were discussed with the patient or legal guardian. The need for outpatient follow up with the provider listed on their discharge instructions was discussed. They were encouraged to return to [facility], or the nearest ED, if symptoms worsen/persist, or for any other questions/concerns. 15:38 Physician consultation: Dr. Enrrique Monte MD regarding patient's condition, and advises the medications/treatment as provided. and agrees with the treatment provided and advises the discharge plans as outlined. 09/15 11:38 ECG/EKG was scanned into [facility] and attached to record. EC/01 14:58 Rate is 78 beats/min. Rhythm is regular, Normal Sinus Rhythm. QRS [place] is Normal. HI pc interval is normal. QRS interval is normal. QT interval is normal. No Q waves. T waves are Normal. No ST changes noted. Clinical impression: Normal Sinus Rhythm. Signatures: Dispatcher [employer] EDEduin Ricketts MD MD Deb Gardiner, [facility] Candi AkinsRN RN ck1 Rosa SiegelRN RN [facility] The chart was reviewed and I authenticate all verbal orders and agree with the evaluation and treatment provided.Corrections: (The following items were deleted from the chart) 14:58 14:54 The history from nurses notes was reviewed and I agree with what is documented. pcpc Attachments: 09/15 11:38 ECG/EKG Chart Complete MTDD
== END 2016-09-14 16:20 | disposition home or self-care (01) ==
LOC: M ED 13:39
DX: R00.2 Palpitations (principal); R01.1 Cardiac murmur, unspecified; I10 Essential (primary) hypertension; K21.9 Gastro-esophageal reflux disease without esophagitis; J44.9 Chronic obstructive pulmonary disease, unspecified; M54.5 Low back pain; F31.9 Bipolar disorder, unspecified; F17.210 Nicotine dependence, cigarettes, uncomplicated; Z79.82 Long term (current) use of aspirin; Z79.51 Long term (current) use of inhaled steroids; Z79.899 Other long term (current) drug therapy

== ENCOUNTER → 2016-09-14 | Outpatient (CLI) | payer MEDICARE, MEDICAID ==
[~2016-09-14] MED LIST: /HYDR10T NG; ADV250INH INH; ADV500INH INH; ALBU0.5N NEB; ASPI81TA7 PO; ATOR1TAB19 PO; BACL10TA2 PO; BUSP5TA PO; DIVA500T9 PO; EMLA2.5C TOP; FAMO20TA PO; FAMO40TA3 PO; IMIP75CA PO; LORA10TA2 PO; LOSA50TA20 PO; MAGN400C2 PO; MECL12.575 PO; MONT10TA2 PO; NICOINH IN; OMEP20CA3 PO; PRED5PAK PO; RISP0.252 PO; RISP2TAB3 PO; SPIRIVA INH INH; ULTR50TA PO; VENTAER IN; VOLT1GEL2 TD; Z-PACK PO; ZANA2CAP PO; [UNRECOGNIZED DRUG - OTHER] INH; [UNRECOGNIZED DRUG - OTHER] PO
--- NOTE | 2016-09-18 11:17 | HOLTMON ---
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 WAS MONITORED FOR 23HOURS AND 41 MINUTES. BASELINE MECHANISM WAS SINUS RHYTHM WITH NORMAL AV CONDUCTION. THERE WERE 5 PAC'S, NO PVC'S AND NO PAUSES. NO OTHER ARRHYTHMIAS. PATIENT REPORTED NUMEROUS EPISODES OF DIZZINESS, PALPITATIONS AND SHORTNESS OF BREATH. ALL EPISODES CORRESPONDED TO SINUS RHYTHM OR MILD SINUS TACHYCARDIA. NORMAL HOLTER MONITOR. NO CORRELATION OF SYMPTOMS WITH ARRHYTHMIAS. Electronically Signed On 09-18-2016 11:17:48 EST by Troy Peña
== END ==
LOC: M EKG 16:26
PROVIDERS: ATTEND Emergency Medicine
DX: R00.2 Palpitations (principal)

== ENCOUNTER → 2016-10-24 | Outpatient (CLI) | payer MEDICARE, MEDICAID ==
--- NOTE | 2016-10-24 11:36 | REP ---
Right knee series: Five views. History: Medial sided pain. Findings: Five views of the right knee demonstrate mild diffuse osteopenia. There is no evidence of joint effusion. There is vascular calcification posteriorly. A small dystrophic calcification is seen in the superficial soft tissues above the patella on lateral radiograph. No erosive change is seen. No fracture is noted. Impression: No acute abnormality. Signed by Jonathan Ruiz MD 10/24/2016 12:28 P
== END ==
LOC: M RAD 10:33
PROVIDERS: ATTEND Family Medicine
DX: M25.561 Pain in right knee (principal)

== ENCOUNTER → 2016-11-03 | Outpatient (CLI) | payer MEDICARE, MEDICAID ==
--- NOTE | 2016-11-04 00:21 | ECWPNPC ---
PATIENT NAME: LUCERO CEDENO : 1960 GENDER: FEMALE VISIT DATE: 11/03/2016 DISCHARGE DATE: 11/03/16 1058 VISIT LOCKED DATE TIME: PHYSICIAN: SUSANA MARS RESOURCE: SUSANA MARS REASON FOR APPOINTMENT 1. BACK HISTORY OF PRESENT ILLNESS HISTORY OF PRESENT ILLNESS: PAIN THE PATIENT DESCRIBES THE PAIN... FALL RISK SCREENING: SCREENING :NO FALLS IN THE PAST YEAR TODAY'S VISIT: NOTES: RATES PAIN TODAY 7/10. NOTES PAIN AT BASE OF NECK TO RIGHT SHOULDER BLADE, AT RIGHT HIP AND RIGHT POSTERIOR KNEE. DESCRIBES PAIN BURNING AND SORE. WAS RECENTLY SEEN IN ER FOR CHEST FLUTTERING. HAS SEEN DR MONTESINOS. IS HAVING PAIN IN RIGHT KNEE AND LEG - IS BEING SENT TO [facility]TH[facility] FOR THIS. . CURRENT MEDICATIONS TAKING ASPIRIN 81 MG TABLET 1 TABLET ORALLY ONCE A DAY TAKING FLUTICASONE PROPIONATE 50 MCG/ACT SUSPENSION 1 SPRAY IN EACH NOSTRIL NASALLY ONCE A DAY TAKING MAGNESIUM OXIDE 400 MG CAPSULE 1 CAPSULE ORALLY ONCE A DAY TAKING TRAMADOL HCL 50 MG TABLET DIRECTED ORALLY TAKE 1 TAB Q 8 HRS PRN PAIN MDD=3 TAKING IBUPROFEN 800 MG TABLET 1 TABLET ORALLY BID TAKING DIVALPROEX SODIUM ER 500 MG TABLET EXTENDED RELEASE 24 HOUR DIRECTED ORALLY ONCE A DAY TAKING ADVAIR HFA 115-21 MCG/ACT AEROSOL 2 PUFFS INHALATION TWICE A DAY TAKING FAMOTIDINE 20 MG TABLET 1 TABLET AT BEDTIME ORALLY ONCE A DAY TAKING BUSPIRONE HCL 5 MG TABLET 1 TABLET ORALLY TWICE A DAY TAKING LOSARTAN POTASSIUM 50 MG TABLET 1 TABLET ORALLY ONCE A DAY TAKING LORATADINE 10 MG TABLET 1 TABLET ORALLY ONCE A DAY TAKING BACLOFEN 10 MG TABLET 1 TABLET WITH FOOD OR MILK ORALLY THREE TIMES A DAY TAKING SPIRIVA HANDIHALER 18 MCG CAPSULE ONE APPLICATION INHALATION DAILY TAKING OMEPRAZOLE 20 MG CAPSULE DELAYED RELEASE 2 CAPSULES ORALLY ONCE A DAY TAKING MONTELUKAST SODIUM 10 MG TABLET 1 TABLET IN THE EVENING ORALLY ONCE A DAY TAKING VENTOLIN HFA 108 (90 BASE) MCG/ACT AEROSOL SOLUTION 2 PUFFS NEEDED INHALATION EVERY 4 HRS NOT-TAKING TESSALON PERLES 100 MG CAPSULE 1 CAPSULE NEEDED ORALLY THREE TIMES A DAY NOT-TAKING PREDNISONE 10 MG TABLET 1 TABLET ORALLY TAKE 5 TABS DAILY X 2DAY, 4 TAB X 2 DAY, 3 TAB X 2 DAY, 2 TAB X 2 DAY, 1 TAB X 2 DAY NOT-TAKING MAGNESIUM OXIDE 400 MG CAPSULE 1 CAPSULE ORALLY ONCE A DAY MEDICATION LIST REVIEWED AND RECONCILED WITH THE PATIENT PAST MEDICAL HISTORY COPD HTN NASAL POYLP CANCER BIPOLAR HEART MURMUR ALLERGIES BEES, EGGS, TREES: ANAPHYLAXIS: ALLERGY IV CONTRAST DYE: RASH: ALLERGY MOLD: SINUS CONGESTION: ALLERGY SOCIAL HISTORY GENERAL: TOBACCO USE ARE YOU A:CURRENT SMOKER HOW MANY CIGARETTES A DAY DO YOU SMOKE?11-20 HOW SOON AFTER YOU WAKE UP DO YOU SMOKE YOUR FIRST CIGARETTE?6-30 MIN HOW OFTEN DO YOU SMOKE CIGARETTES?EVERY DAY PATIENT COUNSELED ON THE DANGERS OF TOBACCO USE AND URGED TO QUIT:11/03/2016 ARE YOU INTERESTED IN QUITTING?NOT READY TO QUIT COUNSELED THE PATIENT ON SMOKING EFFECTS, EDUCATION [id number]/23/2017 ALCOHOL SCREENING DID YOU HAVE A DRINK CONTAINING ALCOHOL IN THE PAST YEAR?NO POINTS0 INTERPRETATIONNEGATIVE RECREATIONAL DRUG USE DRUG USE?NO CAFFEINE CAFFEINE USE?YES HIV / HEP-C SCREENING HIV TEST OFFERED TO PATIENT:NO HEP-C TEST OFFERED TO PATIENT:NO OCCUPATION: DISABLED. DIET: REGULAR. EXERCISE: NO REGULAR EXERCISE. MARITAL STATUS: .. OTHERS AT HOME: DAUGHTER, SON-IN-LAW, AND 4 GRANDCHILDREN. PETS: 5-CATS, 2-DOGS. BUDDHISM: NO MANDAEN BELIEFS THAT WOULD IMPACT HEALTH CARE. LANGUAGE: SWEDISH. LEARNING BARRIERS / SPECIAL NEEDS CHANGE FROM LAST VISIT?YES BARRIERS TO LEARNING?NO HEARING IMPAIRED?NO VISION IMPAIRED?YES :CORRECTIVE LENSES COGNITIVELY IMPAIRED?NO READINESS TO LEARN?YES LEARNING PREFERENCES?NO LEARNING CAPABILITIES PRESENT?YES EMOTIONAL BARRIERS?NO SPECIAL DEVICES?NO POOL FINISHER NEEDED?NO NEW PATIENT PAIN DIARY TODAY'S VISITNOTES FROM 0-10, WHAT LEVEL IS YOUR PAIN TODAY?0 PAIN CLINIC PFS, CLERGY, PUBLIC HEALTH REFERRALS PFS REFERRAL NEEDED?NO CLERGY REFERRAL NEEDED?NO PUBLIC HEALTH REFERRAL NEEDED?NO WAS THE PROVIDER NOTIFIED OF ANY PERTINENT INFO?NO PFS REFERRAL NEEDED?NO CLERGY REFERRAL NEEDED?NO PUBLIC HEALTH REFERRAL NEEDED?NO WAS THE PROVIDER NOTIFIED OF ANY PERTINENT INFO?NO PFS REFERRAL NEEDED?NO CLERGY REFERRAL NEEDED?NO PUBLIC HEALTH REFERRAL NEEDED?NO WAS THE PROVIDER NOTIFIED OF ANY PERTINENT INFO?NO REVIEW OF SYSTEMS CONSTITUTIONAL: ANY CHANGE IN YOUR MEDICAL CONDITION? YES, DIAGNOSED WITH HEART MURMUR IN SEP. . CHILLS NO . FEVER NO . INFECTION: DO YOU HAVE NEW INFECTIONS? NO . DO YOU HAVE HISTORY OF MRSA? NO . MUSCULOSKELETAL: ANY NEW PATTERNS OF PAIN OR NUMBNESS? NO . GASTROENTEROLOGY: ANY NEW CHANGE IN BOWEL CONTROL? NO . GENITOURINARY: ANY NEW CHANGE IN BLADDER CONTROL? NO . IS THERE A CHANCE YOU COULD BE ? NO . HEMATOLOGY/LYMPH: DO YOU TAKE ANY BLOOD THINNERS? (FOR EXAMPLE- COUMADIN, PLAVIX, AGGRENOX, PLATEL, PRADAXA, OR XARELTO) NO . WHEN WAS YOUR LAST DOSE? DATE: TIME: . NEUROLOGY: HAVE YOU FALLEN IN THE PAST 6 MONTHS? NO . ANY NEW EXTREMITY NUMBNESS OR WEAKNESS? NO . CARDIOLOGY: DO YOU HAVE A PACEMAKER OR DEFIBRILLATOR? NO . RESPIRATORY: HAVE YOU BEEN SICK IN THE PAST WEEK? NO . FEVER NO . FLU LIKE SYMPTOMS? NO . COUGH NO . INTEGUMENTARY: DO YOU HAVE ANY RASHES OR OPEN SORES? NO . ALLERGIC/IMMUNO: ARE YOU ALLERGIC TO SHELLFISH OR IV DYE? YES . ANY NEW ALLERGIES? NO . PSYCHIATRIC: DO YOU HAVE THOUGHTS OF HURTING YOURSELF OR SOMEONE ELSE? NO . ARE YOU ABUSED, NEGLECTED, OR IN AN UNSAFE ENVIRONMENT? NO . ENDOCRINOLOGY: ARE YOU DIABETIC? NO . OTHER: DO YOU NEED ANY PRESCRIPTIONS? NO . IF YES, PLEASE LIST: ____ . ANY NEW PROBLEMS WITH YOUR MEDICATIONS? NO . WHEN DID YOU LAST EAT? ____ . WHEN DID YOU LAST DRINK? ____ . WHAT DID YOU LAST DRINK? ____ . NAME OF PERSON DRIVING YOU HOME? ____ . DO YOU HAVE ANY OTHER QUESTIONS OR CONCERNS NO . REVIEWED BY: PROVIDER: SUSANA PANDEY . VITAL SIGNS WT 126.0 LBS, HT 63", BMI 22.32 INDEX, BP 138/71 MM HG, HR 89 /MIN, RR 18 /MIN, TEMP 98.9 F, OXYGEN SAT % 96, NA INITIALS TL 1027, REVIEWED BY: AD. EXAMINATION GENERAL EXAMINATION: PSYCHALERT , ORIENTED X 3 , APPROPRIATE MOOD AND AFFECT . HEENT:NORMOCEPHALIC, NO LYMPHADENOPATHY, NO THYROMEGLY. LUNGS:CLEAR TO AUSCULTATION BILATERALLY. HEART:HEART RATE REGULAR, NORMAL S1S2, NO MURMURS, CLICK OR RUBS. MUSCULOSKELETAL:MS 4-/5 RIGHT UPPER EXTREMITY PROXIMALLY AND DISTALLY. PAIN WITH NECK FLEXION/AND EXTENSION AND WITH ROTATION TO LEFT. EXQUISITE TENDERNESS OVER BILATERAL OCCIPITAL NOTCH AND OVER THE CERVICAL PARSPINOUS MUSCLES. TENDERNESS OVER RIGHT QUADRACEPS TENDON. RISES TO STANDING POSITION EASILY. POSTURE UPRIGHT. GAIT SLOW BUT NONANTALGIC. ASSESSMENTS CERVICAL DISC DISPLACEMENT - M50.20 (PRIMARY) CERVICAL RADICULOPATHY - M54.12 MYALGIA - M79.1 TREATMENT CERVICAL DISC DISPLACEMENT REFILL IBUPROFEN TABLET, 800 MG, 1 TABLET, ORALLY, BID, 14 DAY(S), 28 TABLET, REFILLS 0 REFILL BACLOFEN TABLET, 10 MG, 1 TABLET WITH FOOD OR MILK, ORALLY, THREE TIMES A DAY, 30 DAY(S), 90, REFILLS 3 REFILL MAGNESIUM OXIDE CAPSULE, 400 MG, 1 CAPSULE, ORALLY, ONCE A DAY, 30 DAY(S), 30, REFILLS 5 NOTES: TENNIS BALL TO MUSCLE KNOT AREA IN RIGHT SHOULDER BLADE, FALLS CARE PLAN: 1. RECOMMEND REMOVING ALL THROW RUGS. 2. RECOMMEND NIGHT LIGHTS 3. RECOMMEND WEARING RUBBER SOLED SHOES AND TO NOT GO BAREFOOT. 4.. ADVISED TO CHANGE POSITION SLOWLY FROM SUPINE TO STANDING TO AVOID DIZZINESS. 5. ADVISED TO USE ASSISTIVE DEVICE SUCH CANE OR WALKER 6. USE [employer] OR KEEP PORTABLE PHONE READILY AVAILABLE, # 226 TOBACCO USE SCREENING/INTERVENTION: PATIENT CURRENTLY USED TOBACCO. WAS OFFERED SMOKING CESSATION FOR GUIDANCE IN QUITTING THROUGH THE [facility] QUITS PROGRAM AND THE [facility] CESSATION PROGRAM. PROCEDURE CODES FA211 ESTABILISHED PATIENT [facility] FACILITY CHARGE G8783 BP SCR PRFRM RCMDD DEFIND SCR INTVL G8730 PAIN ASSESS POS TOOL F/U PLAN DOC 1124F ACP DISCUSS-NO [id number] DOCD 1036F TOBACCO NON-USER 0518F FALL PLAN OF CARE DOCD G8427 DOC MEDS VERIFIED W/PT OR RE G8420 BMI<30 AND >=22 CALC & DOCU 3288F FALL RISK ASSESSMENT DOCD 4004F PT TOBACCO SCREEN RCVD TLK DISPOSITION & COMMUNICATION FOLLOW UP 3 MONTHS ELECTRONICALLY SIGNED BY SOHAM LAINEZ ON 11/03/2016 AT 01:36 PM EDT DISCLAIMER : THIS IS A VISIT SUMMARY EXTRACTED FROM THE [employer] [employer] CHART. IT IS NOT A COPY OF THE [employer] PROGRESS NOTE. MTDD
== END ==
LOC: M PAIN 10:20
PROVIDERS: ATTEND Nurse Practitioner Family
DX: Z09 Encounter for follow-up examination after completed treatment for conditions other than malignant neoplasm (principal); G89.29 Other chronic pain; M50.20 Other cervical disc displacement, unspecified cervical region; M54.12 Radiculopathy, cervical region; M79.1 Myalgia; J44.9 Chronic obstructive pulmonary disease, unspecified; I10 Essential (primary) hypertension; R01.1 Cardiac murmur, unspecified; F31.9 Bipolar disorder, unspecified; F17.200 Nicotine dependence, unspecified, uncomplicated; Z91.012 Allergy to eggs; Z91.030 Bee allergy status; Z91.048 Other nonmedicinal substance allergy status; Z91.041 Radiographic dye allergy status; J30.89 Other allergic rhinitis; Z79.82 Long term (current) use of aspirin; Z79.891 Long term (current) use of opiate analgesic; Z79.1 Long term (current) use of non-steroidal anti-inflammatories (NSAID); Z79.899 Other long term (current) drug therapy

== ENCOUNTER → 2016-11-16 | Outpatient (CLI) | payer MEDICARE, MEDICAID ==
[2016-11-16 13:53] LABS: FREE T4 1.23 NG/DL (0.76-1.46)
== END ==
LOC: M LAB 12:50
PROVIDERS: ATTEND Internal Medicine Cardiovascular Disease
DX: R00.2 Palpitations (principal)

== ENCOUNTER 2016-12-08 08:00 | Outpatient (RCR) | payer MEDICARE, MEDICAID | END 2016-12-11 | LOC: M PT 08:00 | PROVIDERS: ATTEND Orthopaedic Surgery | DX: Z51.89 Encounter for other specified aftercare (principal); M25.561 Pain in right knee; M22.41 Chondromalacia patellae, right knee | CPT/HCPCS: 97110; 97161; G8978; G8979 ==

== ENCOUNTER 2016-12-15 08:00 | Outpatient (RCR) | payer MEDICARE, MEDICAID | END 2017-01-11 | LOC: M PT 08:00 | PROVIDERS: ATTEND Orthopaedic Surgery | DX: Z51.89 Encounter for other specified aftercare (principal); M25.561 Pain in right knee; M22.41 Chondromalacia patellae, right knee ==

== ENCOUNTER → 2017-01-31 | Outpatient (CLI) | payer MEDICARE, MEDICAID ==
--- NOTE | 2017-02-18 00:28 | ECWPNPC ---
PATIENT NAME: LUCERO CEDENO : 1960 GENDER: FEMALE VISIT DATE: 01/31/2017 DISCHARGE DATE: 01/31/17 0938 VISIT LOCKED DATE TIME: PHYSICIAN: SUSANA MARS RESOURCE: SUSANA MARS HISTORY OF PRESENT ILLNESS HISTORY OF PRESENT ILLNESS: PAIN THE PATIENT DESCRIBES THE PAIN... FALL RISK SCREENING: SCREENING :NO FALLS IN THE PAST YEAR TODAY'S VISIT: NOTES: RATES PAIN TODAY 7/10. DESCRIBES PAIN CONSTANT. PAIN CENTERED IN RIGHT SHOULDER AND AT LOW BACK/SACRUM.STATES SHE WAS SEEN AT ORTHOPEDICS - DR DURAN. HAD INJECTION TO RIGHT KNEE AND WAS SENT FOR MRI OF LOW BACK. STATES HAS NOT BEEN ABLE TO FUNCTION. ALSO REPORTS THAT FEET ARE TURNING BLUE WHEN THEY ARE IN A DEPENDANT POSITION. . CURRENT MEDICATIONS TAKING CVS FLUTICASONE PROPIONATE 50 MCG/ACT SUSPENSION 1 SPRAY IN EACH NOSTRIL NASALLY ONCE A DAY TAKING ASPIRIN 81 MG TABLET 1 TABLET ORALLY ONCE A DAY TAKING FLUTICASONE PROPIONATE 50 MCG/ACT SUSPENSION 1 SPRAY IN EACH NOSTRIL NASALLY ONCE A DAY TAKING MAGNESIUM OXIDE 400 MG CAPSULE 1 CAPSULE ORALLY ONCE A DAY TAKING TRAMADOL HCL 50 MG TABLET DIRECTED ORALLY TAKE 1 TAB Q 8 HRS PRN PAIN MDD=3 TAKING DIVALPROEX SODIUM ER 500 MG TABLET EXTENDED RELEASE 24 HOUR DIRECTED ORALLY ONCE A DAY TAKING ADVAIR HFA 115-21 MCG/ACT AEROSOL 2 PUFFS INHALATION TWICE A DAY TAKING FAMOTIDINE 20 MG TABLET 1 TABLET AT BEDTIME ORALLY ONCE A DAY TAKING BUSPIRONE HCL 5 MG TABLET 1 TABLET ORALLY TWICE A DAY TAKING LOSARTAN POTASSIUM 50 MG TABLET 1 TABLET ORALLY ONCE A DAY TAKING LORATADINE 10 MG TABLET 1 TABLET ORALLY ONCE A DAY TAKING SPIRIVA HANDIHALER 18 MCG CAPSULE ONE APPLICATION INHALATION DAILY TAKING OMEPRAZOLE 20 MG CAPSULE DELAYED RELEASE 2 CAPSULES ORALLY ONCE A DAY TAKING MONTELUKAST SODIUM 10 MG TABLET 1 TABLET IN THE EVENING ORALLY ONCE A DAY TAKING VENTOLIN HFA 108 (90 BASE) MCG/ACT AEROSOL SOLUTION 2 PUFFS NEEDED INHALATION EVERY 4 HRS TAKING IBUPROFEN 800 MG TABLET 1 TABLET ORALLY BID TAKING BACLOFEN 10 MG TABLET 1 TABLET WITH FOOD OR MILK ORALLY THREE TIMES A DAY TAKING MAGNESIUM OXIDE 400 MG CAPSULE 1 CAPSULE ORALLY ONCE A DAY TAKING EPIPEN 2-ABEBE 0.3 MG/0.3ML DEVICE DIRECTED INJECTION NEEDED FOR ALLERGIC REACTION TO BEE STINGS NOT-TAKING TESSALON PERLES 100 MG CAPSULE 1 CAPSULE NEEDED ORALLY THREE TIMES A DAY NOT-TAKING PREDNISONE 10 MG TABLET 1 TABLET ORALLY TAKE 5 TABS DAILY X 2DAY, 4 TAB X 2 DAY, 3 TAB X 2 DAY, 2 TAB X 2 DAY, 1 TAB X 2 DAY MEDICATION LIST REVIEWED AND RECONCILED WITH THE PATIENT PAST MEDICAL HISTORY COPD HTN NASAL POYLP CANCER BIPOLAR HEART MURMUR ALLERGIES BEES, EGGS, TREES: ANAPHYLAXIS: ALLERGY IV CONTRAST DYE: RASH: ALLERGY MOLD: SINUS CONGESTION: ALLERGY SOCIAL HISTORY GENERAL: TOBACCO USE ARE YOU A:CURRENT SMOKER HOW MANY CIGARETTES A DAY DO YOU SMOKE?11-20 HOW SOON AFTER YOU WAKE UP DO YOU SMOKE YOUR FIRST CIGARETTE?6-30 MIN HOW OFTEN DO YOU SMOKE CIGARETTES?EVERY DAY PATIENT COUNSELED ON THE DANGERS OF TOBACCO USE AND URGED TO QUIT:12/14/2016 ARE YOU INTERESTED IN QUITTING?NOT READY TO QUIT COUNSELED THE PATIENT ON SMOKING EFFECTS, EDUCATION [id number]/03/2017 SMOKING CESSATION INFORMATION GIVEN12/14/2016 ALCOHOL SCREENING DID YOU HAVE A DRINK CONTAINING ALCOHOL IN THE PAST YEAR?NO POINTS0 INTERPRETATIONNEGATIVE RECREATIONAL DRUG USE DRUG USE?NO CAFFEINE CAFFEINE USE?YES SEXUAL HX HAD SEX IN THE LAST 12 MONTHS (VAGINAL, ORAL, OR ANAL)?NO HAVE YOU EVER HAD AN STD?NO HIV / HEP-C SCREENING HIV TEST OFFERED TO PATIENT:NO HEP-C TEST OFFERED TO PATIENT:NO OCCUPATION: DISABLED. DIET: REGULAR. EXERCISE: NO REGULAR EXERCISE. MARITAL STATUS: .. OTHERS AT HOME: DAUGHTER, SON-IN-LAW, AND 4 GRANDCHILDREN. PETS: 5-CATS, 2-DOGS. WORSHIP [id number] NONE LANGUAGE LANGUAGES SPOKEN:MACANESE EDUCATION LEVEL OF EDUCATION:FINISHED HIGH SCHOOL LEARNING BARRIERS / SPECIAL NEEDS CHANGE FROM LAST VISIT?YES BARRIERS TO LEARNING?NO HEARING IMPAIRED?NO VISION IMPAIRED?YES COGNITIVELY IMPAIRED?NO :CORRECTIVE LENSES READINESS TO LEARN?YES LEARNING PREFERENCES?NO LEARNING CAPABILITIES PRESENT?YES EMOTIONAL BARRIERS?NO SPECIAL DEVICES?NO ED TRANSPORTER NEEDED?NO NEW PATIENT PAIN DIARY TODAY'S VISIT NOTES, FROM 0-10, WHAT LEVEL IS YOUR PAIN TODAY? 0. PAIN CLINIC PFS, CLERGY, PUBLIC HEALTH REFERRALS PFS REFERRAL NEEDED?NO CLERGY REFERRAL NEEDED?NO PUBLIC HEALTH REFERRAL NEEDED?NO WAS THE PROVIDER NOTIFIED OF ANY PERTINENT INFO?NO REVIEW OF SYSTEMS REVIEWED BY: PROVIDER: SUSANA WALKER FINANCE CLERK . CONSTITUTIONAL: ANY CHANGE IN YOUR MEDICAL CONDITION? NO . CHILLS NO . FEVER NO . INFECTION: DO YOU HAVE NEW INFECTIONS? NO . DO YOU HAVE HISTORY OF MRSA? NO . MUSCULOSKELETAL: ANY NEW PATTERNS OF PAIN OR NUMBNESS? YES . GASTROENTEROLOGY: ANY NEW CHANGE IN BOWEL CONTROL? NO . GENITOURINARY: ANY NEW CHANGE IN BLADDER CONTROL? NO . IS THERE A CHANCE YOU COULD BE ? NO . HEMATOLOGY/LYMPH: DO YOU TAKE ANY BLOOD THINNERS? (FOR EXAMPLE- COUMADIN, PLAVIX, AGGRENOX, PLATEL, PRADAXA, OR XARELTO) NO . WHEN WAS YOUR LAST DOSE? DATE: TIME: . NEUROLOGY: HAVE YOU FALLEN IN THE PAST 6 MONTHS? NO . ANY NEW EXTREMITY NUMBNESS OR WEAKNESS? NO . CARDIOLOGY: DO YOU HAVE A PACEMAKER OR DEFIBRILLATOR? NO . RESPIRATORY: HAVE YOU BEEN SICK IN THE PAST WEEK? NO . FEVER NO . FLU LIKE SYMPTOMS? NO . COUGH NO . INTEGUMENTARY: DO YOU HAVE ANY RASHES OR OPEN SORES? NO . ALLERGIC/IMMUNO: ARE YOU ALLERGIC TO SHELLFISH OR IV DYE? YES . ANY NEW ALLERGIES? NO . PSYCHIATRIC: DO YOU HAVE THOUGHTS OF HURTING YOURSELF OR SOMEONE ELSE? NO . ARE YOU ABUSED, NEGLECTED, OR IN AN UNSAFE ENVIRONMENT? NO . ENDOCRINOLOGY: ARE YOU DIABETIC? NO . OTHER: DO YOU NEED ANY PRESCRIPTIONS? YES . IF YES, PLEASE LIST: ____BACLOFEN AND MAGNESIUM . ANY NEW PROBLEMS WITH YOUR MEDICATIONS? NO . WHEN DID YOU LAST EAT? ____ . WHEN DID YOU LAST DRINK? ____ . WHAT DID YOU LAST DRINK? ____ . NAME OF PERSON DRIVING YOU HOME? ____ . DO YOU HAVE ANY OTHER QUESTIONS OR CONCERNS NO . VITAL SIGNS WT 128 LBS, HT 63", BMI 22.67 INDEX, BP 132/67 MM HG, HR 63 /MIN, RR 16 /MIN, TEMP 98.4 F, OXYGEN SAT % 97%, NA INITIALS SC 09:01. EXAMINATION GENERAL EXAMINATION: PSYCHALERT , ORIENTED X 3 , APPROPRIATE MOOD AND AFFECT . HEENT:NORMOCEPHALIC, NO LYMPHADENOPATHY, NO THYROMEGLY. LUNGS:CLEAR TO AUSCULTATION BILATERALLY. HEART:HEART RATE REGULAR, NORMAL S1S2, NO MURMURS, CLICK OR RUBS. MUSCULOSKELETAL:MS 4-/5 RIGHT UPPER EXTREMITY PROXIMALLY AND DISTALLY. PAIN WITH NECK FLEXION/AND EXTENSION AND WITH ROTATION TO LEFT. EXQUISITE TENDERNESS OVER BILATERAL OCCIPITAL NOTCH AND OVER THE CERVICAL PARSPINOUS MUSCLES. TENDERNESS OVER RIGHT QUADRACEPS TENDON. RISES TO STANDING POSITION SLOWLY. IS VERY STIFF. POSTURE UPRIGHT. GAIT SLOW BUT NONANTALGIC. 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 PROCEDURE CODES FA211 ESTABILISHED PATIENT [facility] FACILITY CHARGE G8730 PAIN ASSESS POS TOOL F/U PLAN DOC G8427 DOC MEDS VERIFIED W/PT OR RE DISPOSITION & COMMUNICATION FOLLOW UP AFTER INJECTION (REASON: REQUEST AUTH FOR INTRALAMINAR LUMBAR EPIDURAL WITH ATTENTION TO RIGHT L4-5, L5-S1) ELECTRONICALLY SIGNED BY SOHAM LAINEZ ON 02/16/2017 AT 06:41 PM EDT DISCLAIMER : THIS IS A VISIT SUMMARY EXTRACTED FROM THE [facility] CHART. IT IS NOT A COPY OF THE [facility] PROGRESS NOTE. JESSIE
== END ==
LOC: M PAIN 09:00
PROVIDERS: ATTEND Nurse Practitioner Family
DX: G89.29 Other chronic pain (principal); M51.16 Intervertebral disc disorders with radiculopathy, lumbar region; M46.1 Sacroiliitis, not elsewhere classified; M25.511 Pain in right shoulder; J44.9 Chronic obstructive pulmonary disease, unspecified; I10 Essential (primary) hypertension; E31.9 Polyglandular dysfunction, unspecified; F17.210 Nicotine dependence, cigarettes, uncomplicated; Z91.030 Bee allergy status; Z91.041 Radiographic dye allergy status; J30.89 Other allergic rhinitis; Z79.82 Long term (current) use of aspirin; Z79.891 Long term (current) use of opiate analgesic; Z79.1 Long term (current) use of non-steroidal anti-inflammatories (NSAID); Z79.899 Other long term (current) drug therapy

== ENCOUNTER → 2017-02-03 | Outpatient (CLI) | payer MEDICARE, MEDICAID ==
[~2017-02-03] MED LIST changes: +ISOVUE-M 300 61% 15ML VIAL (Q9967) As Ordered ONE; +LIDOCAINE 1% SDV INJ 30 ML VIAL As Ordered ONE; +diazePAM 5 MG TAB As Ordered ONE; +methylPREDNISolone SUSP 40 MG/ML (DEPO-medrol) VIAL (J1030) As Ordered ONE; +oxyCODONE 5MG TAB As Ordered ONE
--- NOTE | 2017-02-03 15:55 | REP ---
FLUOROSCOPIC GUIDANCE FOR LUMBAR SPINE INJECTION: 02/03/2017. Clinical history: Low back pain. Findings: Single image from C-arm fluoroscopy provided to Dr. Suarez of the pain clinic for lumbar epidural steroid injection. Image shows a single needle to the right of midline at the L4-5 level. Fluoroscopy time: 34 seconds. Signed by Rudy Portillo MD 02/03/2017 08:39 P
--- NOTE | 2017-02-14 23:05 | ECWPNPC ---
PATIENT NAME: LUCERO CEDENO : 1960 GENDER: FEMALE VISIT DATE: 02/03/2017 DISCHARGE DATE: 02/03/17 1253 VISIT LOCKED DATE TIME: PHYSICIAN: SHANI PATTERSON RESOURCE: SHANI PATTERSON REASON FOR APPOINTMENT 1. INTRALAMINAR LE R L4-5, L5-S1 HISTORY OF PRESENT ILLNESS HISTORY OF PRESENT ILLNESS: PAIN THE PATIENT DESCRIBES THE PAIN... FALL RISK SCREENING: SCREENING :NO FALLS IN THE PAST YEAR CURRENT MEDICATIONS TAKING BACLOFEN 10 MG TABLET 1 TABLET WITH FOOD OR MILK ORALLY THREE TIMES A DAY, NOTES: 02-02-17799 TAKING MAGNESIUM OXIDE 400 MG CAPSULE 1 CAPSULE ORALLY ONCE A DAY, NOTES: 02-02-17799 TAKING [facility]S FLUTICASONE PROPIONATE 50 MCG/ACT SUSPENSION 1 SPRAY IN EACH NOSTRIL NASALLY ONCE A DAY, NOTES: 02-02-17799 TAKING ASPIRIN 81 MG TABLET 1 TABLET ORALLY ONCE A DAY, NOTES: 02-02-17799 TAKING TRAMADOL HCL 50 MG TABLET DIRECTED ORALLY TAKE 1 TAB Q 8 HRS PRN PAIN MDD=3, NOTES: 01-30-17 TAKING DIVALPROEX SODIUM ER 500 MG TABLET EXTENDED RELEASE 24 HOUR DIRECTED ORALLY ONCE A DAY, NOTES: 02-02-17799 TAKING ADVAIR HFA 115-21 MCG/ACT AEROSOL 2 PUFFS INHALATION TWICE A DAY, NOTES: 02-02-17799 TAKING FAMOTIDINE 20 MG TABLET 1 TABLET AT BEDTIME ORALLY ONCE A DAY, NOTES: 02-02-172099 TAKING BUSPIRONE HCL 5 MG TABLET 1 TABLET ORALLY TWICE A DAY, NOTES: 02-02-172099 TAKING LOSARTAN POTASSIUM 50 MG TABLET 1 TABLET ORALLY ONCE A DAY, NOTES: 02-02-17799 TAKING LORATADINE 10 MG TABLET 1 TABLET ORALLY ONCE A DAY, NOTES: 02-02-17799 TAKING SPIRIVA HANDIHALER 18 MCG CAPSULE ONE APPLICATION INHALATION DAILY, NOTES: 02-02-17799 TAKING OMEPRAZOLE 20 MG CAPSULE DELAYED RELEASE 2 CAPSULES ORALLY ONCE A DAY, NOTES: 02-02-17799 TAKING MONTELUKAST SODIUM 10 MG TABLET 1 TABLET IN THE EVENING ORALLY ONCE A DAY, NOTES: 02-02-17799 TAKING VENTOLIN HFA 108 (90 BASE) MCG/ACT AEROSOL SOLUTION 2 PUFFS NEEDED INHALATION EVERY 4 HRS, NOTES: 02-03-17 0800 TAKING IBUPROFEN 800 MG TABLET 1 TABLET ORALLY BID, NOTES: 02-02-17 1400 TAKING EPIPEN 2-ABEBE 0.3 MG/0.3ML DEVICE DIRECTED INJECTION NEEDED FOR ALLERGIC REACTION TO BEE STINGS DISCONTINUED FLUTICASONE PROPIONATE 50 MCG/ACT SUSPENSION 1 SPRAY IN EACH NOSTRIL NASALLY ONCE A DAY DISCONTINUED MAGNESIUM OXIDE 400 MG CAPSULE 1 CAPSULE ORALLY ONCE A DAY DISCONTINUED TESSALON PERLES 100 MG CAPSULE 1 CAPSULE NEEDED ORALLY THREE TIMES A DAY DISCONTINUED PREDNISONE 10 MG TABLET 1 TABLET ORALLY TAKE 5 TABS DAILY X 2DAY, 4 TAB X 2 DAY, 3 TAB X 2 DAY, 2 TAB X 2 DAY, 1 TAB X 2 DAY MEDICATION LIST REVIEWED AND RECONCILED WITH THE PATIENT PAST MEDICAL HISTORY COPD HTN NASAL POYLP CANCER BIPOLAR HEART MURMUR ALLERGIES BEES, EGGS, TREES: ANAPHYLAXIS: ALLERGY IV CONTRAST DYE: RASH: ALLERGY MOLD: SINUS CONGESTION: ALLERGY REVIEW OF SYSTEMS REVIEWED BY: PROVIDER: . CONSTITUTIONAL: ANY CHANGE IN YOUR MEDICAL CONDITION? NO COPD IS WORST . CHILLS NO . FEVER NO . INFECTION: DO YOU HAVE NEW INFECTIONS? NO . DO YOU HAVE HISTORY OF MRSA? NO . MUSCULOSKELETAL: ANY NEW PATTERNS OF PAIN OR NUMBNESS? YES, LOWER BACK AND GOES DOWN BOTH LEGS. . GASTROENTEROLOGY: ANY NEW CHANGE IN BOWEL CONTROL? NO . GENITOURINARY: ANY NEW CHANGE IN BLADDER CONTROL? NO . IS THERE A CHANCE YOU COULD BE ? NO . HEMATOLOGY/LYMPH: DO YOU TAKE ANY BLOOD THINNERS? (FOR EXAMPLE- COUMADIN, PLAVIX, AGGRENOX, PLATEL, PRADAXA, OR XARELTO) NO . WHEN WAS YOUR LAST DOSE? DATE: TIME: . NEUROLOGY: HAVE YOU FALLEN IN THE PAST 6 MONTHS? NO . ANY NEW EXTREMITY NUMBNESS OR WEAKNESS? NO . CARDIOLOGY: DO YOU HAVE A PACEMAKER OR DEFIBRILLATOR? NO . RESPIRATORY: HAVE YOU BEEN SICK IN THE PAST WEEK? NO . FEVER NO . FLU LIKE SYMPTOMS? NO . COUGH NO . INTEGUMENTARY: DO YOU HAVE ANY RASHES OR OPEN SORES? NO . ALLERGIC/IMMUNO: ARE YOU ALLERGIC TO SHELLFISH OR IV DYE? NO . ANY NEW ALLERGIES? NO . PSYCHIATRIC: DO YOU HAVE THOUGHTS OF HURTING YOURSELF OR SOMEONE ELSE? NO . ARE YOU ABUSED, NEGLECTED, OR IN AN UNSAFE ENVIRONMENT? NO . ENDOCRINOLOGY: ARE YOU DIABETIC? NO . OTHER: DO YOU NEED ANY PRESCRIPTIONS? NO . IF YES, PLEASE LIST: ____ . ANY NEW PROBLEMS WITH YOUR MEDICATIONS? NO . WHEN DID YOU LAST EAT? 02-02-17 5PM . WHEN DID YOU LAST DRINK? 02-03-17 0700 . WHAT DID YOU LAST DRINK? WATER . NAME OF PERSON DRIVING YOU HOME? NOE [phone] . DO YOU HAVE ANY OTHER QUESTIONS OR CONCERNS NO . VITAL SIGNS WT 128 LBS, HT 63", BMI 22.67 INDEX, BP 150/73 MM HG, HR 80 /MIN, RR 16 /MIN, TEMP 98.5 F, OXYGEN SAT % 96%, NA INITIALS SC 10:29, REVIEWED BY: CM. ASSESSMENTS INTERVERTEBRAL DISC DISORDERS WITH RADICULOPATHY, LUMBAR REGION - M51.16 (PRIMARY) PROCEDURES PRE PROCEDURE DIAGNOSIS LUMBAR DISC DISORDER WITH RADICULOPATHY POST PROCEDURE DIAGNOSIS LUMBAR DISC DISORDER WITH RADICULOPATHY PROCEDURE LUMBAR EPIDURAL STEROID INJECTION UNDER FLUOROSCOPIC GUIDANCE SURGEON DR. SHANI PATTERSON SYSTEMS TESTER NONE ANESTHESIA LOCAL PRE PROCEDURE NOTE THE PATIENT HAS A HISTORY OF CHRONIC LOW BACK PAIN. I EVALUATE THE PATIENT AND REVIEWED THE CHART. I WENT OVER THE RISKS, ALTERNATIVES, AND BENEFITS ASSOCIATED WITH THIS PROCEDURE. THE PATIENT WOULD LIKE TO PROCEED AND GIVE CONSENT TO PERFORMED THE PROCEDURE. THE PATIENT DENIES UNEXPLAINABLE WEIGHT LOSS, FEVER, CHILLS, OR NEW CHANGES IN URINARY OR BOWEL CONTROL. DESCRIPTION OF PROCEDURE THE PATIENT WAS BROUGHT TO THE PROCEDURE ROOM AND PLACED IN THE PRONE POSITION. THE LUMBOSACRAL AREA WAS CLEANED WITH BETADINE SOLUTION AND DRAPED ASEPTICALLY. THE PROCEDURE WAS DONE UNDER STERILE CONDITIONS. I CHECKED LATERALITY AND THE LEVEL WHERE THE PROCEDURE WAS GOING TO BE PERFORMED WITH THE PATIENT AND THE SUPPORTING STAFF AT THE MOMENT OF THE TIME OUT IN THE PROCEDURE ROOM. UNDER FLUOROSCOPIC GUIDANCE, THE TARGET POINT WAS SELECTED AT THE INTERLAMINAR LEVEL OF L4-L5. LIDOCAINE WAS USED TO NUMB THE SKIN AND THE SUBCUTANEOUS TISSUE BELOW IT. EPIDURAL TUOHY NEEDLE, 17-GAUGE, WAS ADVANCED UNDER FLUOROSCOPIC GUIDANCE AND FOLLOWING PATIENT FEEDBACK UNTIL THE EPIDURAL SPACE WAS REACHED, 7 CM DEEP INTO THE SKIN BY THE LOSS OF RESISTANCE TECHNIQUE. 0.25 ML, WAS INJECTED SHOWING ADEQUATE SPREAD OF THE DYE. THEN, A SOLUTION OF 3 ML OF NORMAL SALINE WITH DEPO-MEDROL 60 MG WAS INJECTED SLOWLY FOLLOWING PATIENT FEEDBACK. THERE WAS NO EVIDENCE OF BLOOD, PARESTHESIA OR CEREBROSPINAL FLUID DURING THE PROCEDURE. THE PATIENT WAS SENT TO THE RECOVERY ROOM. THE PATIENT WAS MOVING THE EXTREMITIES AND DOING WELL. THERE WAS NO COMPLICATION DURING THE PROCEDURE. FLUOROSCOPY TIME WAS 8 SECONDS POST PROCEDURE NOTE THE PATIENT WILL BE SEEN IN A FOLLOW UP IN THE NEXT FEW WEEKS. INSTRUCTIONS WERE GIVEN, QUESTIONS WERE ANSWERED, AND THE PATIENT EXPRESSED UNDERSTANDING AND AGREES WITH THE PLAN. I, ERWIN DORSEY, DOCUMENTED THE ABOVE INFORMATION ACTING A SCRIBE FOR DR. PATTERSON. I HAVE REVIEWED THE ABOVE DOCUMENT, WRITTEN BY ERWIN SHULTZ AND I VERIFY THAT IT IS ACCURATE DIAGNOSTIC IMAGING [facility] FLUORO GUIDE SPINE INJECTION (PAIN)[id number] PROCEDURE CODES 93699 LUMBAR/SACRAL W/ IMAGING 6045F RADXPS IN END [id number] PXD DISPOSITION & COMMUNICATION FOLLOW UP 3 WEEKS ELECTRONICALLY SIGNED BY SHANI PATTERSON MD ON 02/14/2017 AT 08:50 PM EDT DISCLAIMER : THIS IS A VISIT SUMMARY EXTRACTED FROM THE [employer] CHART. IT IS NOT A COPY OF THE [employer] PROGRESS NOTE. JESSIE
== END ==
LOC: M PAIN 10:20
PROVIDERS: ATTEND Anesthesiology
DX: G89.29 Other chronic pain (principal); M54.5 Low back pain; M51.16 Intervertebral disc disorders with radiculopathy, lumbar region; J44.9 Chronic obstructive pulmonary disease, unspecified; M50.20 Other cervical disc displacement, unspecified cervical region; Z79.82 Long term (current) use of aspirin; Z79.891 Long term (current) use of opiate analgesic; Z79.899 Other long term (current) drug therapy; Z91.030 Bee allergy status; Z91.041 Radiographic dye allergy status; J30.89 Other allergic rhinitis
CPT/HCPCS: 62323; J1030; Q9967

== ENCOUNTER → 2017-02-10 | Outpatient (RCR) | payer MEDICARE, MEDICAID ==
[~2017-02-10] MED LIST changes: -ISOVUE-M 300 61% 15ML VIAL (Q9967) As Ordered ONE; -LIDOCAINE 1% SDV INJ 30 ML VIAL As Ordered ONE; -diazePAM 5 MG TAB As Ordered ONE; -methylPREDNISolone SUSP 40 MG/ML (DEPO-medrol) VIAL (J1030) As Ordered ONE; -oxyCODONE 5MG TAB As Ordered ONE
== END | disposition home or self-care (01) ==
LOC: M PT 01-18 09:13
PROVIDERS: ATTEND Orthopaedic Surgery
DX: Z51.89 Encounter for other specified aftercare (principal); M54.5 Low back pain
CPT/HCPCS: 97110; 97161; G8978; G8979; G8980

== ENCOUNTER → 2017-02-10 | Outpatient (CLI) | payer MEDICARE, MEDICAID ==
--- NOTE | 2017-02-10 23:29 | ECWPNPC ---
PATIENT NAME: LUECRO CEDENO : 1960 GENDER: FEMALE VISIT DATE: 02/10/2017 DISCHARGE DATE: 02/10/17 1153 VISIT LOCKED DATE TIME: PHYSICIAN: SUSANA MARS RESOURCE: SUSANA MARS REASON FOR APPOINTMENT 1. POST PROCEDURE HISTORY OF PRESENT ILLNESS HISTORY OF PRESENT ILLNESS: PAIN THE PATIENT DESCRIBES THE PAIN... FALL RISK SCREENING: SCREENING :NO FALLS IN THE PAST YEAR TODAY'S VISIT: NOTES: S/P INTRALAMINAL LESB AT L4-5 COMPLETED ON 02/03/17. PAIN LEVEL PRIORTO PROCEDURE 02/20, BRIEFLY DECREASED TO /10 AND THEN RETURNED TO 02/20. IS NOTING PAIN ALONG THE CENTER SPINE HAS DECREASED BUT IS HAVING MORE MUSCLE SPASMS RADIATING UP THE BACK AND INTO THE RIGHT LEG. IS NOT ABLE TO STAND OR WALK FOR MORE THAN 10 MINUTES, AND CAN NOT FIND A COMFORTABLE POSITION TO SIT. . CURRENT MEDICATIONS TAKING BACLOFEN 10 MG TABLET 1 TABLET WITH FOOD OR MILK ORALLY THREE TIMES A DAY TAKING MAGNESIUM OXIDE 400 MG CAPSULE 1 CAPSULE ORALLY ONCE A DAY TAKING CVS FLUTICASONE PROPIONATE 50 MCG/ACT SUSPENSION 1 SPRAY IN EACH NOSTRIL NASALLY ONCE A DAY TAKING ASPIRIN 81 MG TABLET 1 TABLET ORALLY ONCE A DAY TAKING TRAMADOL HCL 50 MG TABLET DIRECTED ORALLY TAKE 1 TAB Q 8 HRS PRN PAIN MDD=3 TAKING DIVALPROEX SODIUM ER 500 MG TABLET EXTENDED RELEASE 24 HOUR DIRECTED ORALLY ONCE A DAY TAKING ADVAIR HFA 115-21 MCG/ACT AEROSOL 2 PUFFS INHALATION TWICE A DAY TAKING FAMOTIDINE 20 MG TABLET 1 TABLET AT BEDTIME ORALLY ONCE A DAY TAKING BUSPIRONE HCL 5 MG TABLET 1 TABLET ORALLY TWICE A DAY TAKING LOSARTAN POTASSIUM 50 MG TABLET 1 TABLET ORALLY ONCE A DAY TAKING LORATADINE 10 MG TABLET 1 TABLET ORALLY ONCE A DAY TAKING SPIRIVA HANDIHALER 18 MCG CAPSULE ONE APPLICATION INHALATION DAILY TAKING OMEPRAZOLE 20 MG CAPSULE DELAYED RELEASE 2 CAPSULES ORALLY ONCE A DAY TAKING MONTELUKAST SODIUM 10 MG TABLET 1 TABLET IN THE EVENING ORALLY ONCE A DAY TAKING VENTOLIN HFA 108 (90 BASE) MCG/ACT AEROSOL SOLUTION 2 PUFFS NEEDED INHALATION EVERY 4 HRS TAKING IBUPROFEN 800 MG TABLET 1 TABLET ORALLY BID TAKING EPIPEN 2-ABEBE 0.3 MG/0.3ML DEVICE DIRECTED INJECTION NEEDED FOR ALLERGIC REACTION TO BEE STINGS MEDICATION LIST REVIEWED AND RECONCILED WITH THE PATIENT PAST MEDICAL HISTORY COPD HTN NASAL POYLP CANCER BIPOLAR HEART MURMUR ALLERGIES BEES, EGGS, TREES: ANAPHYLAXIS: ALLERGY IV CONTRAST DYE: RASH: ALLERGY MOLD: SINUS CONGESTION: ALLERGY SOCIAL HISTORY GENERAL: TOBACCO USE ARE YOU A:CURRENT SMOKER HOW MANY CIGARETTES A DAY DO YOU SMOKE?11-20 HOW SOON AFTER YOU WAKE UP DO YOU SMOKE YOUR FIRST CIGARETTE?6-30 MIN HOW OFTEN DO YOU SMOKE CIGARETTES?EVERY DAY PATIENT COUNSELED ON THE DANGERS OF TOBACCO USE AND URGED TO QUIT:12/14/2016 ARE YOU INTERESTED IN QUITTING?NOT READY TO QUIT COUNSELED THE PATIENT ON SMOKING EFFECTS, EDUCATION [id number]/03/2017 SMOKING CESSATION INFORMATION GIVEN12/14/2016 ALCOHOL SCREENING DID YOU HAVE A DRINK CONTAINING ALCOHOL IN THE PAST YEAR?NO POINTS0 INTERPRETATIONNEGATIVE RECREATIONAL DRUG USE DRUG USE?NO CAFFEINE CAFFEINE USE?YES SEXUAL HX HAD SEX IN THE LAST 12 MONTHS (VAGINAL, ORAL, OR ANAL)?NO HAVE YOU EVER HAD AN STD?NO HIV / HEP-C SCREENING HIV TEST OFFERED TO PATIENT:NO HEP-C TEST OFFERED TO PATIENT:NO OCCUPATION: DISABLED. DIET: REGULAR. EXERCISE: NO REGULAR EXERCISE. MARITAL STATUS: .. OTHERS AT HOME: DAUGHTER, SON-IN-LAW, AND 4 GRANDCHILDREN. PETS: 5-CATS, 2-DOGS. VOODOO [id number] NONE LANGUAGE LANGUAGES SPOKEN:VIETNAMESE EDUCATION LEVEL OF EDUCATION:FINISHED HIGH SCHOOL LEARNING BARRIERS / SPECIAL NEEDS CHANGE FROM LAST VISIT?YES BARRIERS TO LEARNING?NO HEARING IMPAIRED?NO VISION IMPAIRED?YES COGNITIVELY IMPAIRED?NO :CORRECTIVE LENSES READINESS TO LEARN?YES LEARNING PREFERENCES?NO LEARNING CAPABILITIES PRESENT?YES EMOTIONAL BARRIERS?NO SPECIAL DEVICES?NO ANALYTICAL SCIENTIST NEEDED?NO NEW PATIENT PAIN DIARY TODAY'S VISIT NOTES, FROM 0-10, WHAT LEVEL IS YOUR PAIN TODAY? 0. PAIN CLINIC PFS, CLERGY, PUBLIC HEALTH REFERRALS PFS REFERRAL NEEDED?NO CLERGY REFERRAL NEEDED?NO PUBLIC HEALTH REFERRAL NEEDED?NO WAS THE PROVIDER NOTIFIED OF ANY PERTINENT INFO?NO HAS THE PATIENT BEEN EDUCATED REGARDING HIS/HER PLAN OF CARE?YES HAS THE PATIENT BEEN EDUCATED REGARDING PAIN, THE RISK FOR PAIN, THE IMPORTANCE OF EFFECTIVE PAIN MANAGEMENT, AND THE PAIN ASSESSMENT PROCESS?YES REVIEW OF SYSTEMS REVIEWED BY: PROVIDER: SUSANA PANDEY . CONSTITUTIONAL: ANY CHANGE IN YOUR MEDICAL CONDITION? NO . CHILLS NO . FEVER NO . INFECTION: DO YOU HAVE NEW INFECTIONS? NO . DO YOU HAVE HISTORY OF MRSA? NO . MUSCULOSKELETAL: ANY NEW PATTERNS OF PAIN OR NUMBNESS? NO . GASTROENTEROLOGY: ANY NEW CHANGE IN BOWEL CONTROL? NO . GENITOURINARY: ANY NEW CHANGE IN BLADDER CONTROL? NO . IS THERE A CHANCE YOU COULD BE ? NO . HEMATOLOGY/LYMPH: DO YOU TAKE ANY BLOOD THINNERS? (FOR EXAMPLE- COUMADIN, PLAVIX, AGGRENOX, PLATEL, PRADAXA, OR XARELTO) NO . WHEN WAS YOUR LAST DOSE? DATE: TIME: . NEUROLOGY: HAVE YOU FALLEN IN THE PAST 6 MONTHS? NO . ANY NEW EXTREMITY NUMBNESS OR WEAKNESS? NO . CARDIOLOGY: DO YOU HAVE A PACEMAKER OR DEFIBRILLATOR? NO . RESPIRATORY: HAVE YOU BEEN SICK IN THE PAST WEEK? NO . FEVER NO . FLU LIKE SYMPTOMS? NO . COUGH NO . INTEGUMENTARY: DO YOU HAVE ANY RASHES OR OPEN SORES? NO . ALLERGIC/IMMUNO: ARE YOU ALLERGIC TO SHELLFISH OR IV DYE? YES, IV DYE . ANY NEW ALLERGIES? NO . PSYCHIATRIC: DO YOU HAVE THOUGHTS OF HURTING YOURSELF OR SOMEONE ELSE? NO . ARE YOU ABUSED, NEGLECTED, OR IN AN UNSAFE ENVIRONMENT? NO . ENDOCRINOLOGY: ARE YOU DIABETIC? NO . OTHER: DO YOU NEED ANY PRESCRIPTIONS? NO . IF YES, PLEASE LIST: ____ . ANY NEW PROBLEMS WITH YOUR MEDICATIONS? NO . WHEN DID YOU LAST EAT? ____ . WHEN DID YOU LAST DRINK? ____ . WHAT DID YOU LAST DRINK? ____ . NAME OF PERSON DRIVING YOU HOME? ____ . DO YOU HAVE ANY OTHER QUESTIONS OR CONCERNS NO . VITAL SIGNS WT 125.0 LBS, HT 63", BMI 22.14 INDEX, BP 130/70 MM HG, HR 59 /MIN, RR 16 /MIN, TEMP 98.2 F, OXYGEN SAT % 98%, NA INITIALS TL 1130, REVIEWED BY: CS. EXAMINATION GENERAL EXAMINATION: PSYCHALERT , ORIENTED X 3 , APPROPRIATE MOOD AND AFFECT . HEENT:NORMOCEPHALIC, NO LYMPHADENOPATHY, NO THYROMEGLY. LUNGS:CLEAR TO AUSCULTATION BILATERALLY. HEART:HEART RATE REGULAR, NORMAL S1S2, NO MURMURS, CLICK OR RUBS. MUSCULOSKELETAL:TENDERNESS OVER RIGHT QUADRACEPS TENDON. RISES TO STANDING POSITION EASILY. POSTURE UPRIGHT. GAIT SLOW BUT NONANTALGIC. EXQUISITE TENDERNESS OVER BILATERAL SIJ R>L. MINIMAL TENDERNESS OVER LUMBAR SPINOUS PROCESSES. , TRIGGER POINTS AND TIGHT FIBROUS BANDS NOTED ACROSS SACRUM AND OVER LUMBAR PARAVERTBRAL MUSCLES:. 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 USE MEDS DIRECTED AND MAY USE TRAMADOL NEEDED - ALREADY HAS AT HOME. PROCEDURE CODES FA211 ESTABILISHED PATIENT [facility] FACILITY CHARGE G8730 PAIN ASSESS POS TOOL F/U PLAN DOC G8427 DOC MEDS VERIFIED W/PT OR RE DISPOSITION & COMMUNICATION FOLLOW UP CALL FOR APPOINTMENT WHEN BACK FROM VACATION (REASON: BACK PAIN) ELECTRONICALLY SIGNED BY SOHAM LAINEZ ON 02/10/2017 AT 01:00 PM EDT DISCLAIMER : THIS IS A VISIT SUMMARY EXTRACTED FROM THE [employer] CHART. IT IS NOT A COPY OF THE [employer] PROGRESS NOTE. JESSIE
== END ==
LOC: M PAIN 11:00
PROVIDERS: ATTEND Nurse Practitioner Family
DX: G89.29 Other chronic pain (principal); M51.16 Intervertebral disc disorders with radiculopathy, lumbar region; M46.1 Sacroiliitis, not elsewhere classified; M79.1 Myalgia; J44.9 Chronic obstructive pulmonary disease, unspecified; I10 Essential (primary) hypertension; F31.9 Bipolar disorder, unspecified; R00.9 Unspecified abnormalities of heart beat; F17.210 Nicotine dependence, cigarettes, uncomplicated; Z91.030 Bee allergy status; Z91.012 Allergy to eggs; J30.1 Allergic rhinitis due to pollen; J30.89 Other allergic rhinitis; Z91.041 Radiographic dye allergy status; Z79.82 Long term (current) use of aspirin; Z79.891 Long term (current) use of opiate analgesic; Z79.1 Long term (current) use of non-steroidal anti-inflammatories (NSAID); Z79.899 Other long term (current) drug therapy

== ENCOUNTER → 2017-04-21 | Outpatient (CLI) | payer MEDICARE, MEDICAID ==
--- NOTE | 2017-05-10 02:30 | ECWPNPC ---
PATIENT NAME: LUCERO CEDENO : 1960 GENDER: FEMALE VISIT DATE: 04/21/2017 DISCHARGE DATE: 04/21/17 1035 VISIT LOCKED DATE TIME: PHYSICIAN: SUSANA MARS RESOURCE: SUSANA MARS REASON FOR APPOINTMENT 1. BACK PAIN HISTORY OF PRESENT ILLNESS HISTORY OF PRESENT ILLNESS: PAIN THE PATIENT DESCRIBES THE PAIN... FALL RISK SCREENING: SCREENING :NO FALLS IN THE PAST YEAR TODAY'S VISIT: NOTES: RATES PAIN TODAY 02/20. PAIN IS CENTERED IN BACK FROM BASE OF NECK TO LOW BACK. NOTES INTENSE PAIN OVER RIGHT HIP WITH WALKING. NOT HAVING INTENSE PAIN IN LOW BACK. CURRENT MEDICATIONS TAKING MAGNESIUM OXIDE 400 MG CAPSULE 1 CAPSULE ORALLY ONCE A DAY TAKING ASPIRIN 81 MG TABLET 1 TABLET ORALLY ONCE A DAY TAKING TRAMADOL HCL 50 MG TABLET 1 TAB ORALLY TAKE 1 TAB Q 8 HRS PRN PAIN MDD=3 TAKING IBUPROFEN 800 MG TABLET 1 TABLET ORALLY BID TAKING ADVAIR HFA 115-21 MCG/ACT AEROSOL 2 PUFFS INHALATION TWICE A DAY TAKING BACLOFEN 10 MG TABLET 1 TABLET WITH FOOD OR MILK ORALLY THREE TIMES A DAY TAKING [facility] FLUTICASONE PROPIONATE 50 MCG/ACT SUSPENSION 1 SPRAY IN EACH NOSTRIL NASALLY ONCE A DAY TAKING DIVALPROEX SODIUM ER 500 MG TABLET EXTENDED RELEASE 24 HOUR DIRECTED ORALLY ONCE A DAY TAKING FAMOTIDINE 20 MG TABLET 1 TABLET AT BEDTIME ORALLY ONCE A DAY TAKING BUSPIRONE HCL 5 MG TABLET 1 TABLET ORALLY TWICE A DAY TAKING LOSARTAN POTASSIUM 50 MG TABLET 1 TABLET ORALLY ONCE A DAY TAKING LORATADINE 10 MG TABLET 1 TABLET ORALLY ONCE A DAY TAKING SPIRIVA HANDIHALER 18 MCG CAPSULE ONE APPLICATION INHALATION DAILY TAKING OMEPRAZOLE 20 MG CAPSULE DELAYED RELEASE 2 CAPSULES ORALLY ONCE A DAY TAKING MONTELUKAST SODIUM 10 MG TABLET 1 TABLET IN THE EVENING ORALLY ONCE A DAY TAKING VENTOLIN HFA 108 (90 BASE) MCG/ACT AEROSOL SOLUTION 2 PUFFS NEEDED INHALATION EVERY 4 HRS TAKING EPIPEN 2-ABEBE 0.3 MG/0.3ML DEVICE DIRECTED INJECTION NEEDED FOR ALLERGIC REACTION TO BEE STINGS PAST MEDICAL HISTORY COPD HTN NASAL POYLP CANCER BIPOLAR HEART MURMUR ALLERGIES BEES, EGGS, TREES: ANAPHYLAXIS: ALLERGY IV CONTRAST DYE: RASH: ALLERGY MOLD: SINUS CONGESTION: ALLERGY REVIEW OF SYSTEMS REVIEWED BY: PROVIDER: SUSANA MARS EXPLORATION GEOLOGIST . CONSTITUTIONAL: ANY CHANGE IN YOUR MEDICAL CONDITION? NO . CHILLS NO . FEVER NO . INFECTION: DO YOU HAVE NEW INFECTIONS? NO . DO YOU HAVE HISTORY OF MRSA? NO . MUSCULOSKELETAL: ANY NEW PATTERNS OF PAIN OR NUMBNESS? NO . GASTROENTEROLOGY: ANY NEW CHANGE IN BOWEL CONTROL? NO . GENITOURINARY: ANY NEW CHANGE IN BLADDER CONTROL? NO . IS THERE A CHANCE YOU COULD BE ? NO . HEMATOLOGY/LYMPH: DO YOU TAKE ANY BLOOD THINNERS? (FOR EXAMPLE- COUMADIN, PLAVIX, AGGRENOX, PLATEL, PRADAXA, OR XARELTO) NO . WHEN WAS YOUR LAST DOSE? DATE: TIME: . NEUROLOGY: HAVE YOU FALLEN IN THE PAST 6 MONTHS? NO . ANY NEW EXTREMITY NUMBNESS OR WEAKNESS? NO . CARDIOLOGY: DO YOU HAVE A PACEMAKER OR DEFIBRILLATOR? NO . RESPIRATORY: HAVE YOU BEEN SICK IN THE PAST WEEK? NO . FEVER NO . FLU LIKE SYMPTOMS? NO . COUGH NO . INTEGUMENTARY: DO YOU HAVE ANY RASHES OR OPEN SORES? NO . ALLERGIC/IMMUNO: ARE YOU ALLERGIC TO SHELLFISH OR IV DYE? NO . ANY NEW ALLERGIES? NO . PSYCHIATRIC: DO YOU HAVE THOUGHTS OF HURTING YOURSELF OR SOMEONE ELSE? NO . ARE YOU ABUSED, NEGLECTED, OR IN AN UNSAFE ENVIRONMENT? NO . ENDOCRINOLOGY: ARE YOU DIABETIC? YES . OTHER: DO YOU NEED ANY PRESCRIPTIONS? YES . IF YES, PLEASE LIST: MAGNESIUM, IBUPROFEN . ANY NEW PROBLEMS WITH YOUR MEDICATIONS? NO . WHEN DID YOU LAST EAT? ____ . WHEN DID YOU LAST DRINK? ____ . WHAT DID YOU LAST DRINK? ____ . NAME OF PERSON DRIVING YOU HOME? ____ . DO YOU HAVE ANY OTHER QUESTIONS OR CONCERNS HAVING ALOT OF CHARLEY HORSES ON VACATION / WALKING RIGHT FOOT NUMB ON TOP . VITAL SIGNS WT 133.2 LBS, HT 63", BMI 23.59 INDEX, BP 131/69 MM HG, HR 76 /MIN, RR 16 /MIN, TEMP 97.4 F, OXYGEN SAT % 96%, NA INITIALS SC 09:13, REVIEWED BY: ALEX. EXAMINATION GENERAL EXAMINATION: PSYCHALERT , ORIENTED X 3 , APPROPRIATE MOOD AND AFFECT . HEENT:NORMOCEPHALIC, NO LYMPHADENOPATHY, NO THYROMEGLY. LUNGS:CLEAR TO AUSCULTATION BILATERALLY. HEART:HEART RATE REGULAR, NORMAL S1S2, NO MURMURS, CLICK OR RUBS. MUSCULOSKELETAL:TENDERNESS OVER RIGHT QUADRACEPS TENDON. RISES TO STANDING POSITION EASILY. POSTURE UPRIGHT. GAIT SLOW BUT NONANTALGIC. EXQUISITE TENDERNESS OVER BILATERAL SIJ R>L. MINIMAL TENDERNESS OVER LUMBAR SPINOUS PROCESSES. , TRIGGER POINTS AND TIGHT FIBROUS BANDS NOTED ACROSS SACRUM AND OVER LUMBAR PARAVERTBRAL MUSCLES: EXQUISITE TENDERNESS OVER RIGHT TROCANTER.. 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 EAT 1 BANANA A DAY. CONTINUE WITH WATER. PREVENTIVE MEDICINE REVIEWED [place] PROCEDURE CARE / PT EXPRESSED UNDERSTANDING. PROCEDURE CODES FA211 ESTABILISHED PATIENT [facility] FACILITY CHARGE G8730 PAIN ASSESS POS TOOL F/U PLAN DOC G8427 DOC MEDS VERIFIED W/PT OR RE DISPOSITION & COMMUNICATION FOLLOW UP 1 MONTH (REASON: CHECK AUTH FOR RIGHT HIPR TROCANTERIC INJECTION) ELECTRONICALLY SIGNED BY SOHAM LAINEZ ON 05/09/2017 AT 06:31 PM EDT DISCLAIMER : THIS IS A VISIT SUMMARY EXTRACTED FROM THE [employer] CHART. IT IS NOT A COPY OF THE [employer] PROGRESS NOTE. JESSIE
== END ==
LOC: M PAIN 09:00
PROVIDERS: ATTEND Nurse Practitioner Family
DX: G89.29 Other chronic pain (principal); M70.61 Trochanteric bursitis, right hip; M51.16 Intervertebral disc disorders with radiculopathy, lumbar region; M46.1 Sacroiliitis, not elsewhere classified; M79.1 Myalgia; E11.9 Type 2 diabetes mellitus without complications; J44.9 Chronic obstructive pulmonary disease, unspecified; I10 Essential (primary) hypertension; F31.9 Bipolar disorder, unspecified; F17.210 Nicotine dependence, cigarettes, uncomplicated; Z91.030 Bee allergy status; Z91.012 Allergy to eggs; Z91.041 Radiographic dye allergy status; J30.2 Other seasonal allergic rhinitis; J30.89 Other allergic rhinitis; Z79.82 Long term (current) use of aspirin; Z79.891 Long term (current) use of opiate analgesic; Z79.1 Long term (current) use of non-steroidal anti-inflammatories (NSAID); Z79.899 Other long term (current) drug therapy

== ENCOUNTER → 2017-04-24 | Outpatient (CLI) | payer MEDICARE, MEDICAID ==
--- NOTE | 2017-04-24 14:07 | REP ---
RIGHT HIP: Two views. HISTORY: Right hip trochanteric bursitis. FINDINGS: AP and frog-leg views of the right hip show diffuse osteopenia. Femoral head is smooth and rounded. Hip joint space is preserved. Periarticular soft tissues are unremarkable. No erosive change is seen. IMPRESSION: Diffuse osteopenia. Otherwise negative right hip radiographs. Signed by Jonathan Ruiz MD 04/24/2017 03:53 P
== END ==
LOC: M RAD 09:56
PROVIDERS: ATTEND Nurse Practitioner Family
DX: M70.61 Trochanteric bursitis, right hip (principal); M85.80 Other specified disorders of bone density and structure, unspecified site

== ENCOUNTER → 2017-05-03 | Outpatient (CLI) | payer MEDICARE, MEDICAID ==
--- NOTE | 2017-05-03 15:55 | REP ---
Partial lumbar spine series: Single view. History: Injection procedure for pain. 8 seconds of fluoroscopy time is reported. Findings: A single last image hold fluoroscopic spot radiograph of the lumbar spine documents needle position and contrast injection associated with injection procedure. Signed by Jonathan Ruiz MD 05/03/2017 06:38 P
--- NOTE | 2017-05-03 23:48 | ECWPNPC ---
PATIENT NAME: LUCERO CEDENO : 1960 GENDER: FEMALE VISIT DATE: 05/03/2017 DISCHARGE DATE: 05/03/17 1151 VISIT LOCKED DATE TIME: PHYSICIAN: SHANI PATTERSON RESOURCE: SHANI PATTERSON REASON FOR APPOINTMENT 1. RIGHT HIP TROCANTERIC HISTORY OF PRESENT ILLNESS HISTORY OF PRESENT ILLNESS: PAIN THE PATIENT DESCRIBES THE PAIN... FALL RISK SCREENING: SCREENING :NO FALLS IN THE PAST YEAR CURRENT MEDICATIONS TAKING ASPIRIN 81 MG TABLET 1 TABLET ORALLY ONCE A DAY, NOTES: 05/02/17799 TAKING TRAMADOL HCL 50 MG TABLET 1 TAB ORALLY TAKE 1 TAB Q 8 HRS PRN PAIN MDD=3, NOTES: > 2 WEEKS TAKING IBUPROFEN 800 MG TABLET 1 TABLET ORALLY BID, NOTES: 05/02/171999 TAKING ADVAIR HFA 115-21 MCG/ACT AEROSOL 2 PUFFS INHALATION TWICE A DAY, NOTES: 05/02/17799 TAKING BACLOFEN 10 MG TABLET 1 TABLET WITH FOOD OR MILK ORALLY THREE TIMES A DAY, NOTES: 05/02/17799 TAKING [facility] FLUTICASONE PROPIONATE 50 MCG/ACT SUSPENSION 1 SPRAY IN EACH NOSTRIL NASALLY ONCE A DAY, NOTES: 05/02/17799 TAKING DIVALPROEX SODIUM ER 500 MG TABLET EXTENDED RELEASE 24 HOUR DIRECTED ORALLY ONCE A DAY, NOTES: 05/02/17799 TAKING FAMOTIDINE 20 MG TABLET 1 TABLET AT BEDTIME ORALLY ONCE A DAY, NOTES: 05/02/17799 TAKING BUSPIRONE HCL 5 MG TABLET 1 TABLET ORALLY TWICE A DAY, NOTES: 05/02/17799 TAKING LOSARTAN POTASSIUM 50 MG TABLET 1 TABLET ORALLY ONCE A DAY, NOTES: 05/02/17799 TAKING LORATADINE 10 MG TABLET 1 TABLET ORALLY ONCE A DAY, NOTES: 05/02/17799 TAKING SPIRIVA HANDIHALER 18 MCG CAPSULE ONE APPLICATION INHALATION DAILY, NOTES: 05/02/17799 TAKING OMEPRAZOLE 20 MG CAPSULE DELAYED RELEASE 2 CAPSULES ORALLY ONCE A DAY, NOTES: 05/02/17799 TAKING MONTELUKAST SODIUM 10 MG TABLET 1 TABLET IN THE EVENING ORALLY ONCE A DAY, NOTES: 05/02/17799 TAKING VENTOLIN HFA 108 (90 BASE) MCG/ACT AEROSOL SOLUTION 2 PUFFS NEEDED INHALATION EVERY 4 HRS, NOTES: 3 WEEKS AGO TAKING EPIPEN 2-ABEBE 0.3 MG/0.3ML DEVICE DIRECTED INJECTION NEEDED FOR ALLERGIC REACTION TO BEE STINGS, NOTES: > 1 YEAR TAKING MAGNESIUM OXIDE 400 MG CAPSULE 1 CAPSULE ORALLY ONCE A DAY, NOTES: 05/02/17 0800 MEDICATION LIST REVIEWED AND RECONCILED WITH THE PATIENT PAST MEDICAL HISTORY COPD HTN NASAL POYLP CANCER BIPOLAR HEART MURMUR ALLERGIES BEES, EGGS, TREES: ANAPHYLAXIS: ALLERGY IV CONTRAST DYE: RASH: ALLERGY MOLD: SINUS CONGESTION: ALLERGY REVIEW OF SYSTEMS REVIEWED BY: PROVIDER: . CONSTITUTIONAL: ANY CHANGE IN YOUR MEDICAL CONDITION? NO . CHILLS NO . FEVER NO . INFECTION: DO YOU HAVE NEW INFECTIONS? NO . DO YOU HAVE HISTORY OF MRSA? NO . MUSCULOSKELETAL: ANY NEW PATTERNS OF PAIN OR NUMBNESS? NO . GASTROENTEROLOGY: ANY NEW CHANGE IN BOWEL CONTROL? NO . GENITOURINARY: ANY NEW CHANGE IN BLADDER CONTROL? NO . IS THERE A CHANCE YOU COULD BE ? NO . HEMATOLOGY/LYMPH: DO YOU TAKE ANY BLOOD THINNERS? (FOR EXAMPLE- COUMADIN, PLAVIX, AGGRENOX, PLATEL, PRADAXA, OR XARELTO) NO . WHEN WAS YOUR LAST DOSE? DATE: TIME: . NEUROLOGY: HAVE YOU FALLEN IN THE PAST 6 MONTHS? NO . ANY NEW EXTREMITY NUMBNESS OR WEAKNESS? NO . CARDIOLOGY: DO YOU HAVE A PACEMAKER OR DEFIBRILLATOR? NO . RESPIRATORY: HAVE YOU BEEN SICK IN THE PAST WEEK? NO . FEVER NO . FLU LIKE SYMPTOMS? NO . COUGH NO . INTEGUMENTARY: DO YOU HAVE ANY RASHES OR OPEN SORES? NO . ALLERGIC/IMMUNO: ARE YOU ALLERGIC TO SHELLFISH OR IV DYE? YES, RASH . ANY NEW ALLERGIES? NO . PSYCHIATRIC: DO YOU HAVE THOUGHTS OF HURTING YOURSELF OR SOMEONE ELSE? NO . ARE YOU ABUSED, NEGLECTED, OR IN AN UNSAFE ENVIRONMENT? NO . ENDOCRINOLOGY: ARE YOU DIABETIC? NO . OTHER: DO YOU NEED ANY PRESCRIPTIONS? NO . IF YES, PLEASE LIST: ____ . ANY NEW PROBLEMS WITH YOUR MEDICATIONS? NO . WHEN DID YOU LAST EAT? ____05/02/17 1730 . WHEN DID YOU LAST DRINK? ____05/03/17 0700 . WHAT DID YOU LAST DRINK? ____BLACK COFFEE . NAME OF PERSON DRIVING YOU HOME? ____STEPHANIE . DO YOU HAVE ANY OTHER QUESTIONS OR CONCERNS NO . VITAL SIGNS WT 135 LBS, HT 63", BMI 23.91 INDEX, BP 118/65 MM HG, HR 79 /MIN, RR 16 /MIN, TEMP 98.1 F, OXYGEN SAT % 97%, SAFE IN ENV? (Y/N) YES, NA INITIALS SD 09:12, REVIEWED BY: LAS. NOWAK INTERVERTEBRAL DISC DISORDER WITH RADICULOPATHY OF LUMBAR REGION - M51.16 (PRIMARY) PROCEDURES PRE PROCEDURE DIAGNOSIS LUMBAR DISC DISORDER WITH RADICULOPATHY POST PROCEDURE DIAGNOSIS LUMBAR DISC DISORDER WITH RADICULOPATHY PROCEDURE LUMBAR EPIDURAL STEROID INJECTION UNDER FLUOROSCOPIC GUIDANCE SURGEON DR. SHANI PATTERSON GAS PUMPING STATION HELPER NONE ANESTHESIA LOCAL PRE PROCEDURE NOTE THE PATIENT HAS A HISTORY OF CHRONIC LOW BACK PAIN. I EVALUATE THE PATIENT AND REVIEWED THE CHART. I WENT OVER THE RISKS, ALTERNATIVES, AND BENEFITS ASSOCIATED WITH THIS PROCEDURE. THE PATIENT WOULD LIKE TO PROCEED AND GIVE CONSENT TO PERFORMED THE PROCEDURE. THE PATIENT DENIES UNEXPLAINABLE WEIGHT LOSS, FEVER, CHILLS, OR NEW CHANGES IN URINARY OR BOWEL CONTROL. DESCRIPTION OF PROCEDURE THE PATIENT WAS BROUGHT TO THE PROCEDURE ROOM AND PLACED IN THE PRONE POSITION. THE LUMBOSACRAL AREA WAS CLEANED WITH BETADINE SOLUTION AND DRAPED ASEPTICALLY. THE PROCEDURE WAS DONE UNDER STERILE CONDITIONS. I CHECKED LATERALITY AND THE LEVEL WHERE THE PROCEDURE WAS GOING TO BE PERFORMED WITH THE PATIENT AND THE SUPPORTING STAFF AT THE MOMENT OF THE TIME OUT IN THE PROCEDURE ROOM. UNDER FLUOROSCOPIC GUIDANCE, THE TARGET POINT WAS SELECTED AT THE INTERLAMINAR LEVEL OF L4-L5. LIDOCAINE WAS USED TO NUMB THE SKIN AND THE SUBCUTANEOUS TISSUE BELOW IT. EPIDURAL TUOHY NEEDLE, 17-GAUGE, WAS ADVANCED UNDER FLUOROSCOPIC GUIDANCE AND FOLLOWING PATIENT FEEDBACK UNTIL THE EPIDURAL SPACE WAS REACHED, 7 CM DEEP INTO THE SKIN BY THE LOSS OF RESISTANCE TECHNIQUE. ISOVUE M DYE 30%, 0.25 ML, WAS INJECTED SHOWING ADEQUATE SPREAD OF THE DYE. THEN, A SOLUTION OF 3 ML OF NORMAL SALINE WITH DEPO-MEDROL 60 MG WAS INJECTED SLOWLY FOLLOWING PATIENT FEEDBACK. THERE WAS NO EVIDENCE OF BLOOD, PARESTHESIA OR CEREBROSPINAL FLUID DURING THE PROCEDURE. THE PATIENT WAS SENT TO THE RECOVERY ROOM. THE PATIENT WAS MOVING THE EXTREMITIES AND DOING WELL. THERE WAS NO COMPLICATION DURING THE PROCEDURE. FLUOROSCOPY TIME WAS 8 SECONDS. POST PROCEDURE NOTE THE PATIENT WILL BE SEEN IN A FOLLOW UP IN THE NEXT FEW WEEKS. INSTRUCTIONS WERE GIVEN, QUESTIONS WERE ANSWERED, AND THE PATIENT EXPRESSED UNDERSTANDING AND AGREES WITH THE PLAN. I, ERWIN DORSEY, DOCUMENTED THE ABOVE INFORMATION ACTING A SCRIBE FOR DR. PATTERSON. I HAVE REVIEWED THE ABOVE DOCUMENT, WRITTEN BY ERWIN SHULTZ AND I VERIFY THAT IT IS ACCURATE DIAGNOSTIC IMAGING [facility] FLUORO GUIDANCE (PAIN)[id number] PROCEDURE CODES 11980 LUMBAR/SACRAL W/ IMAGING 6045F RADXPS IN END [id number] PXD DISPOSITION & COMMUNICATION FOLLOW UP 3 WEEKS ELECTRONICALLY SIGNED BY SHANI PATTERSON MD ON 05/03/2017 AT 09:29 PM EDT DISCLAIMER : THIS IS A VISIT SUMMARY EXTRACTED FROM THE [employer] CHART. IT IS NOT A COPY OF THE [employer] PROGRESS NOTE. JESSIE
== END ==
LOC: M PAIN 08:45
PROVIDERS: ATTEND Anesthesiology
DX: G89.29 Other chronic pain (principal); M51.16 Intervertebral disc disorders with radiculopathy, lumbar region; J30.2 Other seasonal allergic rhinitis; J30.89 Other allergic rhinitis; Z91.030 Bee allergy status; Z91.041 Radiographic dye allergy status; Z91.012 Allergy to eggs; Z79.82 Long term (current) use of aspirin; Z79.891 Long term (current) use of opiate analgesic; Z79.1 Long term (current) use of non-steroidal anti-inflammatories (NSAID); Z79.899 Other long term (current) drug therapy
CPT/HCPCS: 62323; J1030; Q9967

== ENCOUNTER → 2017-05-12 | Outpatient (CLI) | payer MEDICARE, MEDICAID ==
--- NOTE | 2017-05-23 00:34 | ECWPNPC ---
PATIENT NAME: LUCERO CEDENO : 1960 GENDER: FEMALE VISIT DATE: 05/12/2017 DISCHARGE DATE: 05/12/17 1602 VISIT LOCKED DATE TIME: PHYSICIAN: SHANI PATTERSON RESOURCE: SHANI PATTERSON REASON FOR APPOINTMENT 1. LOW BACK PAIN HISTORY OF PRESENT ILLNESS HISTORY OF PRESENT ILLNESS: PAIN THE PATIENT DESCRIBES THE PAIN... 57 YEAR OLD FEMALE PATIENT WITH HISTORY OF CHRONIC LOW BACK PAIN. PATIENT DESCRIBES THE PAIN ACHING AND THROBBING AND HAVING IT ALL THE TIME WITH A PAIN SCORE OF 8/10. CURRENTLY THE PATIENT IS USING FENTANYL, GABAPENTIN, CYMBALTA, LIDODERM, AND VOLTAREN GEL AND STATES THAT THE MEDICATION KEEPS HER MOBILE AND FUNCTIONAL. PATIENT STATES THAT ANY TYPE OF ACTIVITY INCREASES THE PAIN IN HER LOWER BACK. PATIENT DENIES UNEXPLAINABLE WEIGHT LOSS, FEVER, CHILLS, NEW CHANGES ON HER URINARY OR BOWEL CONTROL. FALL RISK SCREENING: SCREENING :NO FALLS IN THE PAST YEAR CURRENT MEDICATIONS TAKING ASPIRIN 81 MG TABLET 1 TABLET ORALLY ONCE A DAY TAKING TRAMADOL HCL 50 MG TABLET 1 TAB ORALLY TAKE 1 TAB Q 8 HRS PRN PAIN MDD=3 TAKING IBUPROFEN 800 MG TABLET 1 TABLET ORALLY BID TAKING ADVAIR HFA 115-21 MCG/ACT AEROSOL 2 PUFFS INHALATION TWICE A DAY TAKING BACLOFEN 10 MG TABLET 1 TABLET WITH FOOD OR MILK ORALLY THREE TIMES A DAY TAKING [facility] FLUTICASONE PROPIONATE 50 MCG/ACT SUSPENSION 1 SPRAY IN EACH NOSTRIL NASALLY ONCE A DAY TAKING DIVALPROEX SODIUM ER 500 MG TABLET EXTENDED RELEASE 24 HOUR DIRECTED ORALLY ONCE A DAY TAKING FAMOTIDINE 20 MG TABLET 1 TABLET AT BEDTIME ORALLY ONCE A DAY TAKING BUSPIRONE HCL 5 MG TABLET 1 TABLET ORALLY TWICE A DAY TAKING LOSARTAN POTASSIUM 50 MG TABLET 1 TABLET ORALLY ONCE A DAY TAKING LORATADINE 10 MG TABLET 1 TABLET ORALLY ONCE A DAY TAKING SPIRIVA HANDIHALER 18 MCG CAPSULE ONE APPLICATION INHALATION DAILY TAKING OMEPRAZOLE 20 MG CAPSULE DELAYED RELEASE 2 CAPSULES ORALLY ONCE A DAY TAKING MONTELUKAST SODIUM 10 MG TABLET 1 TABLET IN THE EVENING ORALLY ONCE A DAY TAKING VENTOLIN HFA 108 (90 BASE) MCG/ACT AEROSOL SOLUTION 2 PUFFS NEEDED INHALATION EVERY 4 HRS TAKING EPIPEN 2-ABEBE 0.3 MG/0.3ML DEVICE DIRECTED INJECTION NEEDED FOR ALLERGIC REACTION TO BEE STINGS TAKING MAGNESIUM OXIDE 400 MG CAPSULE 1 CAPSULE ORALLY ONCE A DAY MEDICATION LIST REVIEWED AND RECONCILED WITH THE PATIENT PAST MEDICAL HISTORY COPD HTN NASAL POYLP CANCER BIPOLAR HEART MURMUR ALLERGIES BEES, EGGS, TREES: ANAPHYLAXIS: ALLERGY IV CONTRAST DYE: RASH: ALLERGY MOLD: SINUS CONGESTION: ALLERGY SURGICAL HISTORY HYSTERECTOMY, TOTAL WITH BSO APPENDECTOMY ROTATOR CUFF TEAR REPAIR R LENS IMPLANT TETE EYES 2 NASAL SURGERIES ( SOME SORT OF CA REMOVED FROM NOSE IN [place]) POLYP REMOVED FROM [facility]A L LYMPH NODE REMOVED AT AGE 7 SOCIAL HISTORY GENERAL: TOBACCO USE ARE YOU A:CURRENT SMOKER HOW OFTEN DO YOU SMOKE CIGARETTES?EVERY DAY HOW SOON AFTER YOU WAKE UP DO YOU SMOKE YOUR FIRST CIGARETTE?6-30 MIN HOW MANY CIGARETTES A DAY DO YOU SMOKE?11-20 ARE YOU INTERESTED IN QUITTING?NOT READY TO QUIT PATIENT COUNSELED ON THE DANGERS OF TOBACCO USE AND URGED TO QUIT:02/13/2017 COUNSELED THE PATIENT ON SMOKING EFFECTS, EDUCATION [id number]/03/2017 SMOKING CESSATION INFORMATION GIVEN12/14/2016 ALCOHOL SCREENING DID YOU HAVE A DRINK CONTAINING ALCOHOL IN THE PAST YEAR?NO POINTS0 INTERPRETATIONNEGATIVE RECREATIONAL DRUG USE DRUG USE?NO CAFFEINE CAFFEINE USE?YES SEXUAL HX HAD SEX IN THE LAST 12 MONTHS (VAGINAL, ORAL, OR ANAL)?NO HAVE YOU EVER HAD AN STD?NO HIV / HEP-C SCREENING HIV TEST OFFERED TO PATIENT:NO HEP-C TEST OFFERED TO PATIENT:NO OCCUPATION: DISABLED. DIET: REGULAR. EXERCISE: NO REGULAR EXERCISE. MARITAL STATUS: .. OTHERS AT HOME: DAUGHTER, SON-IN-LAW, AND 4 GRANDCHILDREN. PETS: 5-CATS, 2-DOGS. LATTER-DAY [id number] NONE LANGUAGE LANGUAGES SPOKEN:FRENCH EDUCATION LEVEL OF EDUCATION:FINISHED HIGH SCHOOL LEARNING BARRIERS / SPECIAL NEEDS CHANGE FROM LAST VISIT?NO BARRIERS TO LEARNING?NO HEARING IMPAIRED?NO VISION IMPAIRED?YES COGNITIVELY IMPAIRED?NO :CORRECTIVE LENSES READINESS TO LEARN?YES LEARNING PREFERENCES?NO LEARNING CAPABILITIES PRESENT?YES EMOTIONAL BARRIERS?NO SPECIAL DEVICES?NO TRY OUT PERSON NEEDED?NO NEW PATIENT PAIN DIARY TODAY'S VISIT NOTES, FROM 0-10, WHAT LEVEL IS YOUR PAIN TODAY? 0. PAIN CLINIC PFS, CLERGY, PUBLIC HEALTH REFERRALS PFS REFERRAL NEEDED?NO CLERGY REFERRAL NEEDED?NO PUBLIC HEALTH REFERRAL NEEDED?NO WAS THE PROVIDER NOTIFIED OF ANY PERTINENT INFO?NO HAS THE PATIENT BEEN EDUCATED REGARDING HIS/HER PLAN OF CARE?YES HAS THE PATIENT BEEN EDUCATED REGARDING PAIN, THE RISK FOR PAIN, THE IMPORTANCE OF EFFECTIVE PAIN MANAGEMENT, AND THE PAIN ASSESSMENT PROCESS?YES HOSPITALIZATION/MAJOR DIAGNOSTIC PROCEDURE 3 VAGINAL DELIVERIES SUICIDE ATTEMPT-OVERDOSE 1977 REVIEW OF SYSTEMS REVIEWED BY: PROVIDER: SHANI PATTERSON MD . CONSTITUTIONAL: ANY CHANGE IN YOUR MEDICAL CONDITION? NO . CHILLS NO . FEVER NO . INFECTION: DO YOU HAVE NEW INFECTIONS? NO . DO YOU HAVE HISTORY OF MRSA? NO . MUSCULOSKELETAL: ANY NEW PATTERNS OF PAIN OR NUMBNESS? NO . GASTROENTEROLOGY: ANY NEW CHANGE IN BOWEL CONTROL? NO . GENITOURINARY: ANY NEW CHANGE IN BLADDER CONTROL? NO . IS THERE A CHANCE YOU COULD BE ? NO . HEMATOLOGY/LYMPH: DO YOU TAKE ANY BLOOD THINNERS? (FOR EXAMPLE- COUMADIN, PLAVIX, AGGRENOX, PLATEL, PRADAXA, OR XARELTO) NO . WHEN WAS YOUR LAST DOSE? DATE: TIME: . NEUROLOGY: HAVE YOU FALLEN IN THE PAST 6 MONTHS? NO . ANY NEW EXTREMITY NUMBNESS OR WEAKNESS? NO . CARDIOLOGY: DO YOU HAVE A PACEMAKER OR DEFIBRILLATOR? NO . RESPIRATORY: HAVE YOU BEEN SICK IN THE PAST WEEK? NO . FEVER NO . FLU LIKE SYMPTOMS? NO . COUGH NO . INTEGUMENTARY: DO YOU HAVE ANY RASHES OR OPEN SORES? NO . ALLERGIC/IMMUNO: ARE YOU ALLERGIC TO SHELLFISH OR IV DYE? YES, IV DYE . ANY NEW ALLERGIES? NO . PSYCHIATRIC: DO YOU HAVE THOUGHTS OF HURTING YOURSELF OR SOMEONE ELSE? NO . ARE YOU ABUSED, NEGLECTED, OR IN AN UNSAFE ENVIRONMENT? NO . ENDOCRINOLOGY: ARE YOU DIABETIC? NO . OTHER: DO YOU NEED ANY PRESCRIPTIONS? NO . IF YES, PLEASE LIST: ____ . ANY NEW PROBLEMS WITH YOUR MEDICATIONS? NO . WHEN DID YOU LAST EAT? ____ . WHEN DID YOU LAST DRINK? ____ . WHAT DID YOU LAST DRINK? ____ . NAME OF PERSON DRIVING YOU HOME? ____ . DO YOU HAVE ANY OTHER QUESTIONS OR CONCERNS NO . VITAL SIGNS WT 136 LBS, HT 63", BMI 24.09 INDEX, BP 135/69 MM HG, HR 78 /MIN, RR 16 /MIN, TEMP 98.2 F, OXYGEN SAT % 96, REVIEWED BY: EM. EXAMINATION : PATIENT IS ALERT O X 3 AND COOPERATIVE. TENDERNESS IN THE LOWER BACK AND PARASPINAL MUSCLE GROUP. MRI OF THE LUMBAR SPINE DONE ON 5/26/17 SHOWS CANAL STENOSIS AT L4-L5 WITH HYPERTROPHY FROM L3-L4 THROUGH L5-S1. 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 CEDENO'S PAIN MANAGEMENT CASE. AT THIS TIME THE PATIENT IS WILL START GABAPENTIN FOR THE NEUROPATHIC PAIN. PATIENT WAS ADVISED TO START WITH ONE TABLET A DAY AND SLOWLY INCREASE TO 2 TABLETS A DAY BUT WAS ADVISED TO STOP THE MEDICATION IF SHE HAS ANY ADVERSE SIDE EFFECTS. DUE TO THE PAIN DOWN THE LEG I WOULD LIKE TO PROCEED WITH A TRANSFORAMINAL LUMBAR INJECTION WITH IV SEDATION. WE DISCUSSED THE RISKS, BENENFITS, AND ALTNERATIVES OF THE INJECTION AND THE PATIENT WOULD LIKE TO PROCEED AT THIS TIME. INSTRUCTIONS WERE GIVEN, QUESTIONS WERE ANSWERED, PATIENT REPORTS UNDERSTANDING AND AGREES WITH THE PLAN. I, ERWIN DORSEY, DOCUMENTED THE ABOVE INFORMATION ACTING A SCRIBE FOR DR. PATTERSON. I HAVE REVIEWED THE ABOVE DOCUMENT, WRITTEN BY ERWIN PIERREIBIsabell AND I VERIFY THAT IT IS ACCURATE. OTHERS START GABAPENTIN CAPSULE, 300 MG, 1 CAPSULE, ORALLY FOR PAIN, THREE TIMES A DAY, 30 DAY(S), 90, REFILLS 1 PROCEDURE CODES FA211 ESTABILISHED PATIENT [facility] FACILITY CHARGE G8427 DOC MEDS VERIFIED W/PT OR RE G2768 PAIN ASSESS POS TOOL F/U PLAN DOC DISPOSITION & COMMUNICATION FOLLOW UP TRANSFORAMINAL AFTER APPROVAL ELECTRONICALLY SIGNED BY SHANI PATTERSON MD ON 05/22/2017 AT 04:48 PM EDT DISCLAIMER : THIS IS A VISIT SUMMARY EXTRACTED FROM THE [employer] CHART. IT IS NOT A COPY OF THE [employer] PROGRESS NOTE. MTDD
== END ==
LOC: M PAIN 15:45
PROVIDERS: ATTEND Anesthesiology
DX: G89.29 Other chronic pain (principal); M47.816 Spondylosis without myelopathy or radiculopathy, lumbar region; M47.817 Spondylosis without myelopathy or radiculopathy, lumbosacral region; M51.16 Intervertebral disc disorders with radiculopathy, lumbar region; J44.9 Chronic obstructive pulmonary disease, unspecified; I10 Essential (primary) hypertension; F31.9 Bipolar disorder, unspecified; Z91.030 Bee allergy status; Z91.012 Allergy to eggs; J30.2 Other seasonal allergic rhinitis; Z91.041 Radiographic dye allergy status; J30.89 Other allergic rhinitis; F17.210 Nicotine dependence, cigarettes, uncomplicated; Z79.82 Long term (current) use of aspirin; Z79.891 Long term (current) use of opiate analgesic; Z79.1 Long term (current) use of non-steroidal anti-inflammatories (NSAID); Z79.899 Other long term (current) drug therapy

== ENCOUNTER → 2017-06-20 | Outpatient (CLI) | payer MEDICARE, MEDICAID ==
--- NOTE | 2017-07-13 01:49 | ECWPNPC ---
PATIENT NAME: LUCERO CEDENO : 1960 GENDER: FEMALE VISIT DATE: 06/20/2017 DISCHARGE DATE: 06/20/17 1153 VISIT LOCKED DATE TIME: PHYSICIAN: SUSANA MARS RESOURCE: SUSANA MARS REASON FOR APPOINTMENT 1. TALK ABOUT OPTIONS HISTORY OF PRESENT ILLNESS HISTORY OF PRESENT ILLNESS: PAIN THE PATIENT DESCRIBES THE PAIN... FALL RISK SCREENING: SCREENING :NO FALLS IN THE PAST YEAR TODAY'S VISIT: NOTES: RATES PAIN LEVEL TODAY 6/10. NOTES WORST OF PAIN IS CENTERED IN LOW BACK WITH RADIATION TO RIGHT LEG.. CURRENT MEDICATIONS TAKING ASPIRIN 81 MG TABLET 1 TABLET ORALLY ONCE A DAY TAKING TRAMADOL HCL 50 MG TABLET 1 TAB ORALLY TAKE 1 TAB Q 8 HRS PRN PAIN MDD=3 TAKING IBUPROFEN 800 MG TABLET 1 TABLET ORALLY BID TAKING EPIPEN 2-ABEBE 0.3 MG/0.3ML DEVICE DIRECTED INJECTION NEEDED FOR ALLERGIC REACTION TO BEE STINGS TAKING MAGNESIUM OXIDE 400 MG CAPSULE 1 CAPSULE ORALLY ONCE A DAY TAKING GABAPENTIN 300 MG CAPSULE 1 CAPSULE ORALLY FOR PAIN THREE TIMES A DAY TAKING ALBUTEROL SULFATE (2.5 MG/3ML) 0.083% NEBULIZATION SOLUTION 3 ML INHALATION 3 TIMES A DAY NEEDED TAKING ADVAIR HFA 115-21 MCG/ACT AEROSOL 2 PUFFS INHALATION TWICE A DAY TAKING BACLOFEN 10 MG TABLET 1 TABLET WITH FOOD OR MILK ORALLY THREE TIMES A DAY TAKING [facility] FLUTICASONE PROPIONATE 50 MCG/ACT SUSPENSION 1 SPRAY IN EACH NOSTRIL NASALLY ONCE A DAY TAKING DIVALPROEX SODIUM ER 500 MG TABLET EXTENDED RELEASE 24 HOUR DIRECTED ORALLY ONCE A DAY TAKING FAMOTIDINE 20 MG TABLET 1 TABLET AT BEDTIME ORALLY ONCE A DAY TAKING BUSPIRONE HCL 5 MG TABLET 1 TABLET ORALLY TWICE A DAY TAKING LOSARTAN POTASSIUM 50 MG TABLET 1 TABLET ORALLY ONCE A DAY TAKING LORATADINE 10 MG TABLET 1 TABLET ORALLY ONCE A DAY TAKING SPIRIVA HANDIHALER 18 MCG CAPSULE ONE APPLICATION INHALATION DAILY TAKING OMEPRAZOLE 20 MG CAPSULE DELAYED RELEASE 2 CAPSULES ORALLY ONCE A DAY TAKING MONTELUKAST SODIUM 10 MG TABLET 1 TABLET IN THE EVENING ORALLY ONCE A DAY TAKING VENTOLIN HFA 108 (90 BASE) MCG/ACT AEROSOL SOLUTION 2 PUFFS NEEDED INHALATION EVERY 4 HRS MEDICATION LIST REVIEWED AND RECONCILED WITH THE PATIENT PAST MEDICAL HISTORY COPD HTN NASAL POYLP CANCER BIPOLAR HEART MURMUR ALLERGIES BEES, EGGS, TREES: ANAPHYLAXIS: ALLERGY IV CONTRAST DYE: RASH: ALLERGY MOLD: SINUS CONGESTION: ALLERGY SURGICAL HISTORY HYSTERECTOMY, TOTAL WITH BSO APPENDECTOMY ROTATOR CUFF TEAR REPAIR R LENS IMPLANT TETE EYES 2 NASAL SURGERIES ( SOME SORT OF CA REMOVED FROM NOSE IN [place]) POLYP REMOVED FROM [facility]X AX[facility]A L LYMPH NODE REMOVED AT AGE 7 FAMILY HISTORY FATHER: MOTHER: SIBLINGS: ALIVE SON(S): ALIVE DAUGHTER(S): ALIVE 1 BROTHER(S) , 6 SISTER(S) . 1 SON(S) , 2 DAUGHTER(S) . 1-SISTER LUNG CANCER. SOCIAL HISTORY GENERAL: TOBACCO USE ARE YOU A:CURRENT SMOKER ARE YOU INTERESTED IN QUITTING?NOT READY TO QUIT COUNSELED THE PATIENT ON SMOKING EFFECTS, EDUCATION FYPOKROD02/07/2017 HOW MANY CIGARETTES A DAY DO YOU SMOKE?11-20 HOW SOON AFTER YOU WAKE UP DO YOU SMOKE YOUR FIRST CIGARETTE?6-30 MIN HOW OFTEN DO YOU SMOKE CIGARETTES?EVERY DAY PATIENT COUNSELED ON THE DANGERS OF TOBACCO USE AND URGED TO QUIT:06/20/2017 SMOKING CESSATION INFORMATION GIVEN06/20/2017 ALCOHOL SCREENING DID YOU HAVE A DRINK CONTAINING ALCOHOL IN THE PAST YEAR?NO POINTS0 INTERPRETATIONNEGATIVE RECREATIONAL DRUG USE DRUG USE?NO CAFFEINE CAFFEINE USE?YES SEXUAL HX HAD SEX IN THE LAST 12 MONTHS (VAGINAL, ORAL, OR ANAL)?NO HAVE YOU EVER HAD AN STD?NO HIV / HEP-C SCREENING HIV TEST OFFERED TO PATIENT:NO HEP-C TEST OFFERED TO PATIENT:NO OCCUPATION: DISABLED. DIET: REGULAR. EXERCISE: NO REGULAR EXERCISE. MARITAL STATUS: .. OTHERS AT HOME: DAUGHTER, SON-IN-LAW, AND 4 GRANDCHILDREN, SON, [id number] AND 3 GRANDCHILDREN. PETS: 5-CATS, 2-DOGS. RESTORATION [id number] NONE LANGUAGE LANGUAGES SPOKEN:EQUATORIAL GUINEAN EDUCATION LEVEL OF EDUCATION:FINISHED HIGH SCHOOL LEARNING BARRIERS / SPECIAL NEEDS CHANGE FROM LAST VISIT?NO BARRIERS TO LEARNING?NO HEARING IMPAIRED?NO VISION IMPAIRED?YES :CORRECTIVE LENSES COGNITIVELY IMPAIRED?NO READINESS TO LEARN?YES LEARNING PREFERENCES?NO LEARNING CAPABILITIES PRESENT?YES EMOTIONAL BARRIERS?NO SPECIAL DEVICES?NO ACCOUNTING TEACHER NEEDED?NO NEW PATIENT PAIN DIARY TODAY'S VISIT NOTES, FROM 0-10, WHAT LEVEL IS YOUR PAIN TODAY? 0. PAIN CLINIC PFS, CLERGY, PUBLIC HEALTH REFERRALS PFS REFERRAL NEEDED?NO CLERGY REFERRAL NEEDED?NO PUBLIC HEALTH REFERRAL NEEDED?NO WAS THE PROVIDER NOTIFIED OF ANY PERTINENT INFO?NO HAS THE PATIENT BEEN EDUCATED REGARDING HIS/HER PLAN OF CARE?YES HAS THE PATIENT BEEN EDUCATED REGARDING PAIN, THE RISK FOR PAIN, THE IMPORTANCE OF EFFECTIVE PAIN MANAGEMENT, AND THE PAIN ASSESSMENT PROCESS?YES ADVANCE DIRECTIVES HEALTH CARE PROXY?NO WOULD YOU LIKE MORE INFORMATION?NO DO YOU HAVE A DNR?NO WOULD YOU LIKE MORE INFORMATION?NO LIVING WILL?NO WOULD YOU LIKE MORE INFORMATION?NO POWER OF CRIMP SETTER?NO WOULD YOU LIKE MORE INFORMATION?NO HOSPITALIZATION/MAJOR DIAGNOSTIC PROCEDURE 3 VAGINAL DELIVERIES SUICIDE ATTEMPT-OVERDOSE 1977 REVIEW OF SYSTEMS REVIEWED BY: PROVIDER: . CONSTITUTIONAL: ANY CHANGE IN YOUR MEDICAL CONDITION? NO . CHILLS NO . FEVER NO . INFECTION: DO YOU HAVE NEW INFECTIONS? NO . DO YOU HAVE HISTORY OF MRSA? NO . MUSCULOSKELETAL: ANY NEW PATTERNS OF PAIN OR NUMBNESS? NO . GASTROENTEROLOGY: ANY NEW CHANGE IN BOWEL CONTROL? NO . GENITOURINARY: ANY NEW CHANGE IN BLADDER CONTROL? NO . IS THERE A CHANCE YOU COULD BE ? NO . HEMATOLOGY/LYMPH: DO YOU TAKE ANY BLOOD THINNERS? (FOR EXAMPLE- COUMADIN, PLAVIX, AGGRENOX, PLATEL, PRADAXA, OR XARELTO) NO . WHEN WAS YOUR LAST DOSE? DATE: TIME: . NEUROLOGY: HAVE YOU FALLEN IN THE PAST 6 MONTHS? YES . ANY NEW EXTREMITY NUMBNESS OR WEAKNESS? NO . CARDIOLOGY: DO YOU HAVE A PACEMAKER OR DEFIBRILLATOR? NO . RESPIRATORY: HAVE YOU BEEN SICK IN THE PAST WEEK? NO . FEVER NO . FLU LIKE SYMPTOMS? NO . COUGH NO . INTEGUMENTARY: DO YOU HAVE ANY RASHES OR OPEN SORES? NO . ALLERGIC/IMMUNO: ARE YOU ALLERGIC TO SHELLFISH OR IV DYE? YES . ANY NEW ALLERGIES? NO . PSYCHIATRIC: DO YOU HAVE THOUGHTS OF HURTING YOURSELF OR SOMEONE ELSE? NO . ARE YOU ABUSED, NEGLECTED, OR IN AN UNSAFE ENVIRONMENT? NO . ENDOCRINOLOGY: ARE YOU DIABETIC? NO . OTHER: DO YOU NEED ANY PRESCRIPTIONS? YES . IF YES, PLEASE LIST: TRAMADOL, MAGNESIUM . ANY NEW PROBLEMS WITH YOUR MEDICATIONS? NO . WHEN DID YOU LAST EAT? ____ . WHEN DID YOU LAST DRINK? ____ . WHAT DID YOU LAST DRINK? ____ . NAME OF PERSON DRIVING YOU HOME? ____ . DO YOU HAVE ANY OTHER QUESTIONS OR CONCERNS NO . VITAL SIGNS WT 128.8 LBS, HT 63", BMI 22.81 INDEX, BP 139/71 MM HG, HR 72 /MIN, RR 16 /MIN, TEMP 98.3 F, OXYGEN SAT % 97%, NA INITIALS SC 10:46, REVIEWED BY: RODRIGUE. 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 RIGHT L4-5 AND L5-S1 NOTES: GO TO URGENT CARE FOR TICK BITE. DISPLACEMENT OF LUMBAR DISC WITH RADICULOPATHY NOTES: DISCUSSED OPTION FOR TRANSFORAMINAL EPIDURAL. RISKS AND BENEFITS REVIEWED. PREVENTIVE MEDICINE PAIN CLINIC TEACHING: PROCEDURE TEACHING PRE LUMBAR TRANSFORAMINAL EPIDURAL STEROID INJECTION WITH IV SEDATION REVIEWED WITH PT. VERBALIZED UNDERSTANDING.. PROCEDURE CODES FA211 ESTABILISHED PATIENT [facility] FACILITY CHARGE DISPOSITION & COMMUNICATION FOLLOW UP AFTER INJECTION (REASON: CHECK AUTH FOR TRANSFORAMINAL EPIDURAL) ELECTRONICALLY SIGNED BY SOHAM LAINEZ ON 07/11/2017 AT 08:30 AM EST DISCLAIMER : THIS IS A VISIT SUMMARY EXTRACTED FROM THE [facility] CHART. IT IS NOT A COPY OF THE [facility] PROGRESS NOTE. MTDD
== END ==
LOC: M PAIN 10:15
PROVIDERS: ATTEND Nurse Practitioner Family
DX: G89.29 Other chronic pain (principal); M70.61 Trochanteric bursitis, right hip; M51.16 Intervertebral disc disorders with radiculopathy, lumbar region; M46.1 Sacroiliitis, not elsewhere classified; M79.1 Myalgia; J44.9 Chronic obstructive pulmonary disease, unspecified; I10 Essential (primary) hypertension; F31.9 Bipolar disorder, unspecified; R01.1 Cardiac murmur, unspecified; Z85.22 Personal history of malignant neoplasm of nasal cavities, middle ear, and accessory sinuses; F17.210 Nicotine dependence, cigarettes, uncomplicated; Z91.041 Radiographic dye allergy status; Z91.030 Bee allergy status; Z91.048 Other nonmedicinal substance allergy status; Z91.5 Personal history of self-harm

== ENCOUNTER → 2017-06-28 | Outpatient (REF) | payer MEDICARE, MEDICAID | LOC: M SFHCPLAZ 11:51 | PROVIDERS: ATTEND Family Medicine | DX: J02.9 Acute pharyngitis, unspecified (principal) ==

== ENCOUNTER → 2017-08-02 | Outpatient (CLI) | payer MEDICARE, MEDICAID ==
[~2017-08-02] MED LIST changes: -/HYDR10T NG; -ADV250INH INH; -ADV500INH INH; -ALBU0.5N NEB; -ASPI81TA7 PO; -ATOR1TAB19 PO; -BACL10TA2 PO; +BUPIVACAINE HCL 0.25% 30 ML VIAL As Ordered; -BUSP5TA PO; -DIVA500T9 PO; -EMLA2.5C TOP; -FAMO20TA PO; -FAMO40TA3 PO; -IMIP75CA PO; +ISOVUE-M 300 61% 15ML VIAL (Q9967) As Ordered; +LIDOCAINE 1% SDV INJ 30 ML VIAL As Ordered; -LORA10TA2 PO; -LOSA50TA20 PO; -MAGN400C2 PO; -MECL12.575 PO; +MIDAZOLAM INJ 2 MG/2 ML VIAL (J2250) As Ordered; -MONT10TA2 PO; -NICOINH IN; -OMEP20CA3 PO; -PRED5PAK PO; -RISP0.252 PO; -RISP2TAB3 PO; -SPIRIVA INH INH; -ULTR50TA PO; -VENTAER IN; -VOLT1GEL2 TD; -Z-PACK PO; -ZANA2CAP PO; -[UNRECOGNIZED DRUG - OTHER] INH; -[UNRECOGNIZED DRUG - OTHER] PO; +dexameTHASONE 10 MG/1 ML VIAL PRES.FREE (J1100) As Ordered; +diphenhydrAMINE 25 MG CAP As Ordered; +diphenhydrAMINE INJ 50MG/ML VIAL (J1200) As Ordered; +fentaNYL 100 MCG/2 ML INJECTION (J3010) As Ordered
== END ==
LOC: M PAIN 14:00
DX: G89.29 Other chronic pain (principal); M48.061 Spinal stenosis, lumbar region without neurogenic claudication; M51.16 Intervertebral disc disorders with radiculopathy, lumbar region; J44.9 Chronic obstructive pulmonary disease, unspecified; I10 Essential (primary) hypertension; F31.9 Bipolar disorder, unspecified; F17.210 Nicotine dependence, cigarettes, uncomplicated; J30.1 Allergic rhinitis due to pollen; J30.89 Other allergic rhinitis; Z91.030 Bee allergy status; Z91.012 Allergy to eggs; Z91.041 Radiographic dye allergy status; Z79.82 Long term (current) use of aspirin; Z79.1 Long term (current) use of non-steroidal anti-inflammatories (NSAID); Z79.891 Long term (current) use of opiate analgesic; Z79.899 Other long term (current) drug therapy
CPT/HCPCS: J1100

== ENCOUNTER → 2017-08-31 | Outpatient (CLI) | payer MEDICARE, MEDICAID | LOC: M PAIN 09:00 | DX: G89.29 Other chronic pain (principal); M70.61 Trochanteric bursitis, right hip; M51.16 Intervertebral disc disorders with radiculopathy, lumbar region; M46.1 Sacroiliitis, not elsewhere classified; J44.9 Chronic obstructive pulmonary disease, unspecified; I10 Essential (primary) hypertension; F31.9 Bipolar disorder, unspecified; F17.210 Nicotine dependence, cigarettes, uncomplicated; Z79.82 Long term (current) use of aspirin; Z79.899 Other long term (current) drug therapy; Z91.030 Bee allergy status; Z91.041 Radiographic dye allergy status; Z91.048 Other nonmedicinal substance allergy status | CPT/HCPCS: G0463 ==

== ENCOUNTER → 2017-09-25 | Outpatient (CLI) | payer MEDICARE, MEDICAID | LOC: M PLARAD 10:46 | DX: M47.812 Spondylosis without myelopathy or radiculopathy, cervical region (principal); M50.221 Other cervical disc displacement at C4-C5 level; M50.222 Other cervical disc displacement at C5-C6 level; M50.223 Other cervical disc displacement at C6-C7 level; M25.78 Osteophyte, vertebrae; M50.321 Other cervical disc degeneration at C4-C5 level; M50.322 Other cervical disc degeneration at C5-C6 level; M50.323 Other cervical disc degeneration at C6-C7 level; F40.240 Claustrophobia | CPT/HCPCS: 72141 ==

== ENCOUNTER → 2017-10-30 | Outpatient (CLI) | payer MEDICARE, MEDICAID | LOC: M RAD 08:34 | DX: Z12.2 Encounter for screening for malignant neoplasm of respiratory organs (principal); F17.210 Nicotine dependence, cigarettes, uncomplicated; R91.8 Other nonspecific abnormal finding of lung field | CPT/HCPCS: G0297 ==

== ENCOUNTER → 2017-12-13 | Outpatient (CLI) | payer MEDICARE, MEDICAID ==
[~2017-12-13] MED LIST changes: -MIDAZOLAM INJ 2 MG/2 ML VIAL (J2250) As Ordered; +TRIAMCINOLONE ACETONIDE SUSP 40 MG/ML VIAL (J3301) As Ordered; -dexameTHASONE 10 MG/1 ML VIAL PRES.FREE (J1100) As Ordered; +diazePAM 5 MG TAB As Ordered; -diphenhydrAMINE INJ 50MG/ML VIAL (J1200) As Ordered; -fentaNYL 100 MCG/2 ML INJECTION (J3010) As Ordered; +oxyCODONE 5MG TAB As Ordered
== END | disposition home or self-care (01) ==
LOC: M PAIN 08:45
DX: G89.29 Other chronic pain (principal); M46.1 Sacroiliitis, not elsewhere classified; J44.9 Chronic obstructive pulmonary disease, unspecified; I10 Essential (primary) hypertension; F31.9 Bipolar disorder, unspecified; R01.1 Cardiac murmur, unspecified; Z79.899 Other long term (current) drug therapy; Z79.82 Long term (current) use of aspirin; Z79.51 Long term (current) use of inhaled steroids; Z91.012 Allergy to eggs; Z91.030 Bee allergy status; Z91.048 Other nonmedicinal substance allergy status; Z91.041 Radiographic dye allergy status; F17.210 Nicotine dependence, cigarettes, uncomplicated
CPT/HCPCS: J3301

== ENCOUNTER → 2018-03-21 | Outpatient (REF) | payer MEDICARE, MEDICAID | LOC: M SFHCPLAZ 09:15 | DX: I10 Essential (primary) hypertension (principal); Z53.8 Procedure and treatment not carried out for other reasons ==

== ENCOUNTER → 2018-03-22 | Outpatient (CLI) | payer MEDICARE, MEDICAID | LOC: M PAIN 10:45 | DX: M46.1 Sacroiliitis, not elsewhere classified (principal); M70.61 Trochanteric bursitis, right hip; M51.16 Intervertebral disc disorders with radiculopathy, lumbar region; M79.1 Myalgia; I10 Essential (primary) hypertension; J44.9 Chronic obstructive pulmonary disease, unspecified; F17.210 Nicotine dependence, cigarettes, uncomplicated; Z79.82 Long term (current) use of aspirin; Z79.891 Long term (current) use of opiate analgesic; Z79.899 Other long term (current) drug therapy; Z91.030 Bee allergy status; Z91.012 Allergy to eggs; Z91.041 Radiographic dye allergy status; J30.89 Other allergic rhinitis | CPT/HCPCS: G0463 ==

== ENCOUNTER → 2018-06-15 | Outpatient (CLI) | payer MEDICARE, MEDICAID | LOC: M RAD 08:51 | DX: R91.8 Other nonspecific abnormal finding of lung field (principal); R59.0 Localized enlarged lymph nodes; J47.9 Bronchiectasis, uncomplicated | CPT/HCPCS: 71250 ==

== ENCOUNTER → 2018-11-26 | Outpatient (CLI) | payer MEDICARE, MEDICAID ==
[~2018-11-26] MED LIST changes: +/HYDR10T NG; +ADV250INH INH; +ADV500INH INH; +ALBU0.5N NEB; +ASPI81TA7 PO; +ATOR1TAB19 PO; +BACL10TA2 PO; -BUPIVACAINE HCL 0.25% 30 ML VIAL As Ordered; +BUSP5TA PO; +DIVA500T9 PO; +EMLA2.5C TOP; +FAMO20TA PO; +FAMO40TA3 PO; +IMIP75CA PO; -ISOVUE-M 300 61% 15ML VIAL (Q9967) As Ordered; -LIDOCAINE 1% SDV INJ 30 ML VIAL As Ordered; +LORA10TA2 PO; +LOSA50TA20 PO; +MAGN400C2 PO; +MECL12.575 PO; +MONT10TA2 PO; +NICOINH IN; +OMEP20CA3 PO; +PRED5PAK PO; +RISP0.252 PO; +RISP2TAB3 PO; +SPIRIVA INH INH; -TRIAMCINOLONE ACETONIDE SUSP 40 MG/ML VIAL (J3301) As Ordered; +ULTR50TA PO; +VENTAER IN; +VOLT1GEL2 TD; +Z-PACK PO; +ZANA2CAP PO; +[UNRECOGNIZED DRUG - OTHER] INH; +[UNRECOGNIZED DRUG - OTHER] PO; -diazePAM 5 MG TAB As Ordered; -diphenhydrAMINE 25 MG CAP As Ordered; -oxyCODONE 5MG TAB As Ordered
--- NOTE | 2018-11-26 14:02 | REP ---
PA and lateral chest: Comparisons are the chest CT dated 11/07/2098, PA and lateral views of 09/14/2016. On the comparison chest CT there was atelectasis inferiorly in the lingula. This has resolved and is not present on the current PA and lateral views. On the comparison CT there were numerous small bulla bilaterally, particularly in the upper lobes. These cannot be visualized on the PA and lateral plain film study. Lung [place] otherwise clear. Cardiac size is normal. The raghu, mediastinum, skeletal structures are normal. Impression: The atelectasis in the lingula has resolved. Numerous bulla, particularly in the upper lobes. Electronically Signed by Pk Becker MD 11/26/2018 01:53 P
== END ==
LOC: M RAD 12:06
PROVIDERS: ATTEND Physician Assistant
DX: R91.8 Other nonspecific abnormal finding of lung field (principal)

== ENCOUNTER → 2019-01-16 | Outpatient (REF) | payer MEDICARE, MEDICAID ==
[2019-01-16 18:19] LABS: HEMOGLOBIN A1c 5.7 %
[2019-01-16 18:28] LABS: ALBUMIN 3.7 GM/DL (3.2-5.2); ALT/SGPT 20 U/L (12-78); BILIRUBIN,TOTAL 0.4 MG/DL (0.2-1.0); BLOOD UREA NITROGEN 8 MG/DL (7-18); CALCIUM LEVEL 8.4 MG/DL (8.5-10.1); CARBON DIOXIDE LEVEL 28 MEQ/L (21-32); CHLORIDE LEVEL 96 MEQ/L (98-107); CHOLESTEROL LEVEL 173 MG/DL (<200); CHOLESTEROL RISK RATIO 2.883 (<5); CREATININE FOR GFR 0.56 MG/DL (0.55-1.30); FREE T4 1.25 NG/DL (0.76-1.46); GLOMERULAR FILTRATION RATE > 60.0 (>51); GLUCOSE, FASTING 90 MG/DL (70-100); HDL CHOLESTEROL 60 MG/DL (>40); LDL CHOLESTEROL 99 MG/DL (<100); NON-HDL-C 113 MG/DL; SODIUM LEVEL 131 MEQ/L (136-145); THYROID STIMULATING HORMONE 0.985 uIU/ML (0.358-3.740); TOTAL 25(OH) VITAMIN D 9.7 NG/ML (30.0-100.0); TRIGLYCERIDES LEVEL 72 MG/DL (<150)
[2019-01-16 18:35] LABS: BASO # 0.1 10^3/uL (0.0-0.2); BASO % 1.2 % (0.0-1.0); EOS # 0.1 10^3/uL (0.0-0.50); EOS % 1.1 % (0.0-3.0); HEMATOCRIT 43.1 % (36.0-47.0); HEMOGLOBIN 14.9 g/dl (12.0-15.5); LYMPH # 3.3 10^3/uL (1.5-4.5); LYMPH % 39.5 % (24.0-44.0); MEAN CORPUSCULAR HEMOGLOBIN 30.8 pg (27.0-33.0); MEAN CORPUSCULAR HGB CONC 34.6 g/dl (32.0-36.5); MEAN CORPUSCULAR VOLUME 89.2 fl (80.0-96.0); MONO # 0.7 10^3/uL (0.0-0.8); NEUTROPHILS # 4.2 10^3/uL (1.8-7.7); NEUTROPHILS % 49.7 % (36.0-66.0); PLATELET COUNT, AUTOMATED 267 10^3/uL (150-450); RED BLOOD COUNT 4.83 10^6/uL (4.00-5.40); WHITE BLOOD COUNT 8.4 10^3/uL (4.0-10.0)
[2019-01-16 19:32] LABS: APPEARANCE, URINE CLEAR (CLEAR); BACTERIA, URINE AUTO NEGATIVE (NEGATIVE); BILIRUBIN, URINE AUTO NEGATIVE (NEGATIVE); BLOOD, URINE BLOOD 1+ (NEGATIVE); COLOR, URINE YELLOW (YELLOW); GLUCOSE, URINE (UA) AUTO NEGATIVE (NEGATIVE); KETONE, URINE AUTO NEGATIVE (NEGATIVE); LEUKOCYTE ESTERASE, URINE AUTO 2+ (NEGATIVE); NITRITE, URINE AUTO NEGATIVE (NEGATIVE); PROTEIN, URINE AUTO NEGATIVE (NEGATIVE); RBC, URINE AUTO 0 /HPF (0-3); SPECIFIC GRAVITY URINE AUTO 1.009 (1.002-1.035); SQUAMOUS EPITHELIAL CELL UR AU 4 /HPF (0-6); UROBILINOGEN, URINE AUTO 0.2 mg/dL (0.0-2.0); WBC, URINE AUTO 2 /HPF (0-3)
[2019-01-19 00:06] LABS: Lyme Disease IgG/IgM Antibodie <0.91 ISR (0.00-0.90); Lyme Disease IgM Ab Quantitati <0.80 index (0.00-0.79)
== END ==
LOC: M LAB REF 16:52
PROVIDERS: ATTEND Nurse Practitioner Family
DX: Z13.9 Encounter for screening, unspecified (principal); I10 Essential (primary) hypertension; W57.XXXA Bitten or stung by nonvenomous insect and other nonvenomous arthropods, initial encounter; Y93.9 Activity, unspecified; Y92.9 Unspecified place or not applicable; Z79.82 Long term (current) use of aspirin; Z79.899 Other long term (current) drug therapy